=== PATIENT | male | born 1955 | race Caucasian/White ===

== ENCOUNTER → 2017-10-25 10:52 | Outpatient (CLI) | payer MEDICARE, BC, SELFPAY ==
--- NOTE | 2017-10-25 10:57 | CA_ITS ---
PROCEDURE: 2-D M-mode and color Doppler study INDICATIONS FOR THE TEST: Chest pain COPD Heart Murmur Tobacco Smoking Palpitations Fatigue Syncope Edema HypertensionXXDiabetes Mellitus Rheumatic Fever SOBXDOE ObesityXHyperlipidemiaX Family History HD Additional History CM, PATIENT INFORMATION HEIGHT: 72 WEIGHT:234 GENDER: Male B/P:118/68 2-D/M-MODE INTERPRETATION: 2-D MEASUREMENTS OBSERVED VALUES IN CMS Right Ventricular Dimension (RVDd) 1.7 Interventricular Septum (Thickness)(IVsd) 1.1 Left Ventricular Internal Dimensions(LVIDd) 5.2 Left Ventricular Posterior Wall (Thickness)(LVPWd) 1.0 Aortic Root 3.3 Aortic Cusp Separation 2.2 Left Atrial Dimensions (LAD) 3.1 2D 1. Left atrium is mildly enlarged, left ventricle is qualitatively mildly dilated, there is mild concentric left ventricular hypertrophy, there is severely reduced left ventricular systolic function, visually estimated ejection fraction approximately 30%, there is marked hypokinesis involving the anterior, anteroapical and intraventricular septum. 2. The right atrium and right ventricle are normal size and contractility. 3. The aortic valve is minimally thickened and fibrosed. 4. The mitral and tricuspid valve leaflets are minimally thickened. 5. The pulmonic valve is poorly visualized. 6. No significant pericardial effusion noted. DOPPLER INTERROGATION: Doppler interrogation of the aortic, mitral and tricuspid valve reveals presence of mild mitral and tricuspid regurgitation, tricuspid regurgitant jet velocity is insufficient for calculation of the right ventricular systolic pressure, grade 1 diastolic dysfunction seen with tissue Doppler evidence of raised left atrial pressure. CONCLUSION: 1. Mildly enlarged left atrium, mildly dilated left ventricle, mild concentric left ventricular hypertrophy, severely reduced left ventricular systolic function, visually estimated ejection fraction approximately 30% with segmental wall motion abnormalities described above. Grade 1 diastolic dysfunction seen with tissue Doppler evidence of raised left atrial pressure. 2. Mild mitral and tricuspid regurgitation 3. No significant pericardial effusion noted.
== END ==
PROVIDERS: PCP Emergency Medicine; Visit Provider Internal Medicine
DX: I42.1 Obstructive hypertrophic cardiomyopathy (principal); R07.9 Chest pain, unspecified; R06.00 Dyspnea, unspecified; I25.10 Atherosclerotic heart disease of native coronary artery without angina pectoris; I10 Essential (primary) hypertension; E78.5 Hyperlipidemia, unspecified
CPT/HCPCS: 93306

== ENCOUNTER 2017-11-09 07:42 | Day surgery (SDC) | payer MEDICARE, BC, SELFPAY ==
[2017-11-06 15:52] VITALS: BMI 31.6
[2017-11-09] VITALS (16 sets, daily range): BP systolic 114–142; BP diastolic 62–90; PULSE 76–88; RESP 12–18; TEMP 36.4–36.8; O2SAT 94–97
[2017-11-09 08:49] LABS: Basophils # 0.1 K/mm3 (0-0.2); Basophils % 0.6 % (0.1-2.0); Eosinophils # 0.2 K/mm3 (0.0-0.4); Eosinophils % 2.1 % (0.1-12.0); Hematocrit 40.6 % (42.0-52.0); Hemoglobin 14.1 g/dL (14.1-18.0); Lymphocytes # 1.4 K/mm3 (0.7-4.5); Lymphocytes % 16.3 K/mm3 (10-50); Mean Corpuscular HGB Conc 34.8 g/dL (31.8-35.4); Mean Corpuscular Hemoglobin 29.1 pg (27.0-31.2); Mean Corpuscular Volume 83.8 fl (80-94); Mean Platelet Volume 7.7 fl (7.4-10.4); Monocytes # 0.6 K/mm3 (0.1-1.0); Monocytes % 6.5 % (1.7-9.3); Neutrophils # 6.4 K/mm3 (1.8-7.8); Neutrophils % 74.6 % (37.0-80.0); Platelet Count 224 K/mm3 (142-424); Red Blood Count 4.85 M/mm3 (4.60-6.20); Red Cell Distribution Width 13.1 % (11.5-17.5); White Blood Count 8.6 K/mm3 (4.8-10.8)
[2017-11-09 08:53] LABS: Anion Gap 12.4 mEq/L (5-15); Blood Urea Nitrogen 18 mg/dL (7-18); Carbon Dioxide 28 mmol/L (21.0-32.0); Chloride 99 mmol/L (98-107); Creatinine Clearance Estimated 80 mL/min (0-300); Estimated Glomerular Filt Rate 51 ml/min (>60); GFR (African American) 62 ML/MIN (>60); Glucose 299 mg/dL (74-106); Potassium 4.4 mmoL/L (3.5-5.1); Sodium 135 mmol/L (136-145)
--- NOTE | 2017-11-09 09:23 | HMH.ANESCL ---
[facility] Anesthesia Checklist - Patient Identification Patient Identification: Arm Band, Verbal (Name & ) - Structural Data Admitted From: Home Planned Operative Procedure/s: aicd Consent for Planned Operative Procedure(s) Verified: Yes Verified Documents: Surgical Consent - NPO Status Verified Time NPO: 00:00 - Chart Verification Results Verified: CBC, BMP - Additional verifications Patient : No Anesthesia Reactions: No Hx Blood Transfusions: No Blood Transfusion Reaction: No Cephalosporin Allergy: No Previous Colonoscopy: No - Cardiovascular Assessment Heart Sounds: S1 & S2 Pulse Strength: Baseline Pulse Rhythm: Regular Peripheral Edema: No - Airway Assessment C-Spine Mobility Assessed: Yes TMJ Mobility Assessed: Yes Dentition: Edentulous - Neurological Assessment Level of Consciousness: Awake, Alert, Appropriate Hx Seizures: No Numbness or tingling in extremities: No - Anesthesia Plan Anesthesia Risk discussed: Yes ASA Class: IV Anesthesia Type: General [facility] Anesthesia HX I have reviewed the patient's past medical history: Yes Medical History: Reports:: BPH, Cardiomyopathy, Chronic Obstructive Pulmonary Disease (COPD), Coronary Artery Disease, Diabetes Mellitus Type 2, Gastroesophageal Reflux Disease(GERD), Hypertension Denies:: Cancer, Diabetes Mellitus Type 1, Internal Pacemaker, MRSA, Seizures Other Medical History: Denies: Blood Transfusion Reaction Other Surgeries: Yes: Other. No: Pacemaker Amputation: No Fractures: No *Family Hx:: Asthma, Cancer, Coronary Artery Disease, Diabetes, Hyperlipidemia, Hypertension, Stroke
--- NOTE | 2017-11-09 11:46 | HMH.ANESI ---
[facility] Anesthesia Record Part I Intake, IV Amount: 1,000 Estimated blood loss (mL): 50 Urine output (mL): 0 Blood Pressure: 137/90 SaO2: 95 Pulse Rate: 80 Respiratory Rate: 12 Temperature: 98.1 F Patient is:: Drowsy, Stable Stable to PACU at:: 11:45
--- NOTE | 2017-11-09 11:49 | HMH.ANESII ---
[facility] Anesthesia Record Part II Discharge Time: 12:15 Destination: [facility] PACU nurse assessment reviewed?: Yes Patient Condition:: Good Anesthesia Complications:: None
--- NOTE | 2017-11-09 11:49 | P.PN_ITS ---
[facility] Anesthesia Record Part II Discharge Time: 12:15 Destination: [facility] PACU nurse assessment reviewed?: Yes Patient Condition:: Good Anesthesia Complications:: None
--- NOTE | 2017-11-09 11:49 | P.PN_ITS ---
[facility] Anesthesia Record Part I Intake, IV Amount: 1,000 Estimated blood loss (mL): 50 Urine output (mL): 0 Blood Pressure: 137/90 SaO2: 95 Pulse Rate: 80 Respiratory Rate: 12 Temperature: 98.1 F Patient is:: Drowsy, Stable Stable to PACU at:: 11:45
--- NOTE | 2017-11-09 12:11 | XR_ITS ---
XR chest portable HISTORY: ITS.REASON: verify placement of pacemaker ORDERING PHYSICIAN: Elliott Moore MD PATIENT AGE: 62 years COMPARISON: None available FINDINGS: Left subclavian pacemaker has been placed. There are 3 leads one in the region of the right atrium, one in the region of the right ventricle, and one likely in the region of the coronary sinus overlying the left no evidence of pneumothorax. Minimal atelectatic changes left lung base. IMPRESSION: Status post pacemaker placement without evidence of complication
--- NOTE | 2017-11-09 14:33 | SUR.PHASEI ---
11/09/17 1225 chest xray done in pacu to verify placement of pacemaker
--- NOTE | 2017-11-09 15:51 | PC.NURSE ---
1330- pt eating chicken salad sandwich , chips, pie, dt dew. tolerated well administered 1 percocet 5/235mg at 13:15 for pain 6/10 pt had sling on left arm after dressing. stated felt better with arm secured to body
[2017-11-23 14:55] LABS: POC Glucose,Bedside 303 mg/dL (70-110)
--- NOTE | 2017-11-30 11:53 | HMH.CRT-D ---
[facility] BIKE ASSEMBLER-D - BIKE ASSEMBLER-D Date of Procedure:: 11/09/17 Procedures:: 1. Pocket formation for biventricular pacemaker generator with cardiac resynchronization/defibrillator therapy. 2. Placement atrial sensing and pacing lead into the right atrial appendage. 3. Placement of right ventricular sensing pacing and shocking lead in the right ventricular apex. 4. Placement of left ventricular sensing pacing lead via the coronary sinus. 5. Permanent cardiac resynchronization therapy with AICD implantation/biventricular pacemaker. Indication for test:: Ischemic cardiomyopathy ejection fraction less than 35% Widened QRS greater than 120 ms Systolic congestive heart failure [place] Heart Association class III Informed consent:: Obtained prior to procedure. Complications:: None EBL:: Less than 10 ml. Technique:: . 1% Lidocaine with epinephrine used to anesthetize the left anterior aspect of the chest.Scalpel was used to make the initial cutaneous incision while electrocautery was used to dissect down into the fascia. The fascia was lifted off the pectoralis muscle and digitally manipulated creating a pocket for the pacemaker. The patient was then placed in Trendelenburg position and the subclavian vein was accessed via the Selinger technique on 3 separate occasions. 3 wires were left into the subclavian vein. The right ventricular pacing shocking coil sheath was placed into the subclavian vein and under fluoroscopic guidance the right ventricular sensing pacing shocking lead was placed into the right ventricular apex and secured into place with a distal screw. After achieving excellent numbers the lead was then secured into place using 3-0 silk. The lead was secured to the fascia also with a heavy silk. Prior to the right ventricular lead being secured into place, the sheath was pealed away from the subclavian vein. Under fluoroscopic guidance the coronary sinus was cannulated and confirmed with an injection of contrast. An .014 wire was then placed distally in the inferior posterior swgment of the left ventricle via the coronary sinus and the left ventricular lead was advanced. After achieving eexcellent thresholds and interrogation numbers the sheath was then peeled away and the lead was then secured into place using silk suture. Following this, the left ventricular coil was secured in place using heavy silk and also secured to the fascia. An additional 7 [place] sheath was then placed over the existing wire and an atrial sensing placing coil was placed in the right atrial appendage. After achieving excellent thresholds the sheath was peeled away and the lead was secured to the fascia using heavy silk. After achieving hemostasis, Ancef was used to flush the pocket and the 3 leads were attached to the BIKE ASSEMBLER-D generator. The generator was then secured into place via heavy silk suture. Monocryl was used to close the subcutaneous layers while brian were used to close the cutaneous layer. A pressure dressing was placed and the patient was transferred to the post-op holding area in stable condition. Impression:: 1. Successful pocket formation for biventricular pacemaker generator with cardiac resynchronization/defibrillator therapy. 2. Successful placement of right atrial sensing and pacing lead into the right atrial appendage. 3. Successful placement of a right ventricular sensing, pacing, and shocking lead in the right ventricular apex. 4. Successful placement of left ventricular sensing pacing lead via the coronary sinus. 5. Successful permanent cardiac resynchronization plus AICD generator device. Interrogation:: Generator model number [id number] serial number [id number] Atrial lead model number serial number [id number] model number [id number] Right Ventricular lead model number [id number] serial number [id number] Left Ventricular lead model number 1458QL/86 serial number [id number] RA: P wave 2.8 mV Threshold 1 V Impedance 430 omhs pulse width 0.5 ms RVA
--- NOTE | 2017-11-30 11:59 | P.PCN_ITS ---
[facility] SENIOR GOVERNMENT PROGRAM ANALYST-D - SENIOR GOVERNMENT PROGRAM ANALYST-D Date of Procedure:: 11/09/17 Procedures:: 1. Pocket formation for biventricular pacemaker generator with cardiac resynchronization/defibrillator therapy. 2. Placement atrial sensing and pacing lead into the right atrial appendage. 3. Placement of right ventricular sensing pacing and shocking lead in the right ventricular apex. 4. Placement of left ventricular sensing pacing lead via the coronary sinus. 5. Permanent cardiac resynchronization therapy with AICD implantation/ biventricular pacemaker. Indication for test:: Ischemic cardiomyopathy ejection fraction less than 35% Widened QRS greater than 120 ms Systolic congestive heart failure [place] Heart Association class III Informed consent:: Obtained prior to procedure. Complications:: None EBL:: Less than 10 ml. Technique:: . 1% Lidocaine with epinephrine used to anesthetize the left anterior aspect of the chest.Scalpel was used to make the initial cutaneous incision while electrocautery was used to dissect down into the fascia. The fascia was lifted off the pectoralis muscle and digitally manipulated creating a pocket for the pacemaker. The patient was then placed in Trendelenburg position and the subclavian vein was accessed via the Selinger technique on 3 separate occasions. 3 wires were left into the subclavian vein. The right ventricular pacing shocking coil sheath was placed into the subclavian vein and under fluoroscopic guidance the right ventricular sensing pacing shocking lead was placed into the right ventricular apex and secured into place with a distal screw. After achieving excellent numbers the lead was then secured into place using 3-0 silk. The lead was secured to the fascia also with a heavy silk. Prior to the right ventricular lead being secured into place, the sheath was pealed away from the subclavian vein. Under fluoroscopic guidance the coronary sinus was cannulated and confirmed with an injection of contrast. An .014 wire was then placed distally in the inferior posterior swgment of the left ventricle via the coronary sinus and the left ventricular lead was advanced. After achieving eexcellent thresholds and interrogation numbers the sheath was then peeled away and the lead was then secured into place using silk suture. Following this, the left ventricular coil was secured in place using heavy silk and also secured to the fascia. An additional 7 [place]zeri sheath was then placed over the existing wire and an atrial sensing placing coil was placed in the right atrial appendage. After achieving excellent thresholds the sheath was peeled away and the lead was secured to the fascia using heavy silk. After achieving hemostasis, Ancef was used to flush the pocket and the 3 leads were attached to the SENIOR GOVERNMENT PROGRAM ANALYST-D generator. The generator was then secured into place via heavy silk suture. Monocryl was used to close the subcutaneous layers while brian were used to close the cutaneous layer. A pressure dressing was placed and the patient was transferred to the post-op holding area in stable condition. Impression:: 1. Successful pocket formation for biventricular pacemaker generator with cardiac resynchronization/defibrillator therapy. 2. Successful placement of right atrial sensing and pacing lead into the right atrial appendage. 3. Successful placement of a right ventricular sensing, pacing, and shocking lead in the right ventricular apex. 4. Successful placement of left ventricular sensing pacing lead via the coronary sinus. 5. Successful permanent cardiac resynchronization plus AICD generator device. Interrogation:: Generator model number [id number] serial number [id number] Atrial lead model
== END 2017-11-09 14:36 | disposition home or self-care (01) ==
LOC: OR 07:43
PROVIDERS: PCP Emergency Medicine; Visit Provider Internal Medicine
DX: Z45.02 Encounter for adjustment and management of automatic implantable cardiac defibrillator (principal); I50.22 Chronic systolic (congestive) heart failure; I44.0 Atrioventricular block, first degree; I11.0 Hypertensive heart disease with heart failure; E11.9 Type 2 diabetes mellitus without complications; I44.7 Left bundle-branch block, unspecified
CPT/HCPCS: 33249; 71045; 80048; 82962; 85025; 96374; C1769; C1882; C1894; C1895; C1898; Q9967

== ENCOUNTER → 2017-12-08 09:40 | Outpatient (CLI) | payer MEDICARE, BC, SELFPAY ==
--- NOTE | 2017-12-08 10:21 | XR_ITS ---
XR chest 2V COMPARISON: Portable upright chest 11/09/2017 HISTORY: Cough TECHNIQUE: PA and lateral chest FINDINGS: The lung alcantara are well expanded and appear clear of infiltrate. The cardiac pacemaker and electrodes are again noted electrodes in good position. Cardiac size is normal, there is no pleural fluid. IMPRESSION: Nonacute chest findings
[2017-12-08 16:56] LABS: Hemoglobin A1C 9.5 % (0.0-7.0)
[2017-12-09 00:36] LABS: Anion Gap 16.2 mEq/L (5-15); Blood Urea Nitrogen 26 mg/dL (7-18); Carbon Dioxide 28 mmol/L (21.0-32.0); Chloride 93 mmol/L (98-107); Creatinine,Serum 1.57 mg/dL (0.70-1.30); Estimated Glomerular Filt Rate 45 ml/min (>60); GFR (African American) 54 ML/MIN (>60); Potassium 5.2 mmoL/L (3.5-5.1); Sodium 132 mmol/L (136-145)
[2017-12-09 00:40] LABS: Glucose 384 mg/dL (74-106)
== END ==
PROVIDERS: PCP Emergency Medicine; Visit Provider Emergency Medicine
DX: E11.9 Type 2 diabetes mellitus without complications (principal); R05 Cough
CPT/HCPCS: 71046; 80048; 83036

== ENCOUNTER → 2018-01-03 10:37 | Outpatient (CLI) | payer MEDICARE, BC, SELFPAY ==
--- NOTE | 2018-01-03 10:40 | CT_ITS ---
CT chest wo con HISTORY: ITS.REASON: persistent cough ORDERING PHYSICIAN: Elliott Moore MD PATIENT AGE: 62 years Technique: Axial images obtained. Sagittal and coronal reformatted images are also generated and reviewed. All CT scans at the facility use one or more dose reduction, viz: automated exposure control; ma/kV adjustment per patient size (including targeted exams where dose is matched to indication; i.e. head); or iterative reconstruction technique. CONTRAST: None COMPARISON is made to chest x-ray of 12/08/2017 FINDINGS: Artifact is present from pacemaker generator in the left upper chest wall. No evidence of aortic aneurysm or mediastinal or hilar mass. There is coronary artery calcification. Normal heart size without evidence of pericardial effusion. There are centrilobular emphysematous changes with scattered areas of fibrosis. The right apex there is a 6 mm nodular opacity in the 4 mm nodule right upper lobe laterally. This may be due to areas of parenchymal fibrosis/scarring. Minimal fibrotic changes are present in the left upper lobe centrally. There is mild scarring in the right lung base. No effusions or infiltrates are evident. No central obstructing lesion. Upper abdominal images demonstrates a 5 mm isodensity left hepatic lobe in the hepatic dome area nonspecific. IMPRESSION: 1. Centrilobular emphysema with scattered areas of parenchymal scarring. 2. 6 mm and 4 mm nodular opacities in the right upper lobe which may very well be related to areas of parenchymal fibrosis. Six-month follow-up recommended. 3. Coronary artery disease. 4. Indeterminate 5 mm isodense lesion left hepatic lobe posterolaterally to a small cyst
== END ==
PROVIDERS: PCP Emergency Medicine; Visit Provider Internal Medicine
DX: R05 Cough (principal); R06.09 Other forms of dyspnea; I25.10 Atherosclerotic heart disease of native coronary artery without angina pectoris; I11.9 Hypertensive heart disease without heart failure; E78.5 Hyperlipidemia, unspecified; I50.20 Unspecified systolic (congestive) heart failure; I42.8 Other cardiomyopathies; Z95.810 Presence of automatic (implantable) cardiac defibrillator
CPT/HCPCS: 71250

== ENCOUNTER → 2018-02-06 10:29 | Outpatient (REF) | payer MEDICARE, BC, SELFPAY ==
[2018-02-06 13:50] LABS: Blood Urea Nitrogen 20 mg/dL (7-18); Carbon Dioxide 25 mmol/L (21.0-32.0); Chloride 96 mmol/L (98-107); Creatinine,Serum 1.63 mg/dL (0.70-1.30); Estimated Glomerular Filt Rate 43 ml/min (>60); GFR (African American) 52 ML/MIN (>60); Glucose 371 mg/dL (74-106); Sodium 134 mmol/L (136-145)
[2018-02-06 14:04] LABS: Hemoglobin A1C 8.3 % (0.0-7.0)
== END ==
LOC: LAB 10:29
PROVIDERS: Visit Provider Emergency Medicine
DX: E11.9 Type 2 diabetes mellitus without complications (principal); E78.5 Hyperlipidemia, unspecified
CPT/HCPCS: 80048; 83036

== ENCOUNTER → 2018-02-13 09:23 | Outpatient (POV) | payer MEDICARE, BC, SELFPAY | PROVIDERS: PCP Emergency Medicine; Visit Provider Internal Medicine | DX: Z00.00 Encounter for general adult medical examination without abnormal findings (principal) ==

== ENCOUNTER → 2018-03-07 08:31 | Outpatient (REF) | payer MEDICARE, BC, SELFPAY ==
[2018-03-08 10:31] LABS: Alanine Aminotransferase 30 U/L (12-78); Albumin Level 4.2 gm/dL (3.4-5.0); Albumin/Globulin Ratio 1.4 (1.1-1.8); Alkaline Phosphatase 99 U/L (46-116); Anion Gap 17.4 mEq/L (5-15); Aspartate Amino Transferase 17 U/L (15-37); Bilirubin,Total 0.4 mg/dL (0.2-1.0); Blood Urea Nitrogen 26 mg/dL (7-18); Calcium 9.7 mg/dL (8.5-10.1); Carbon Dioxide 26 mmol/L (21.0-32.0); Chloride 98 mmol/L (98-107); Creatinine,Serum 1.68 mg/dL (0.70-1.30); Estimated Glomerular Filt Rate 41 ml/min (>60); GFR (African American) 50 ML/MIN (>60); Glucose 359 mg/dL (74-106); Potassium 5.4 mmoL/L (3.5-5.1); Sodium 136 mmol/L (136-145); Total Protein,Serum 7.2 gm/dL (6.4-8.2)
[2018-03-09 09:03] LABS: Basophils % 0.5 % (0.1-2.0); Eosinophils # 0.2 K/mm3 (0.0-0.4); Eosinophils % 1.7 % (0.1-12.0); Hematocrit 45.6 % (42.0-52.0); Hemoglobin 13.9 g/dL (14.1-18.0); Lymphocytes # 1.2 K/mm3 (0.7-4.5); Lymphocytes % 13.7 K/mm3 (10-50); Mean Corpuscular HGB Conc 30.6 g/dL (31.8-35.4); Mean Corpuscular Hemoglobin 28.8 pg (27.0-31.2); Mean Corpuscular Volume 94.1 fl (80-94); Mean Platelet Volume 9.7 fl (7.4-10.4); Monocytes # 0.5 K/mm3 (0.1-1.0); Monocytes % 5.5 % (1.7-9.3); Neutrophils % 78.6 % (37.0-80.0); Platelet Count 266 K/mm3 (142-424); Red Blood Count 4.84 M/mm3 (4.60-6.20); Red Cell Distribution Width 13.1 % (11.5-17.5)
[2018-03-09 11:04] LABS: Chol/HDL Ratio 6.3 (1-3.5); Cholesterol 207 mg/dL (140-200); Free T4 (Free Thyroxine) 1.03 ng/dl (0.76-1.46); HDL Cholesterol 33 mg/dL (27-67); Thyroid Stimulating Hormone 2.28 uIU/ml (0.358-3.740)
[2018-03-09 11:18] LABS: Triglycerides 655 mg/dL (30-200)
== END ==
LOC: LAB 08:31
PROVIDERS: Visit Provider Emergency Medicine
DX: E11.9 Type 2 diabetes mellitus without complications (principal)
CPT/HCPCS: 80053; 80061; 84439; 84443; 85025

== ENCOUNTER → 2018-03-08 08:30 | Outpatient (CLI) | payer MEDICARE, BC, SELFPAY | PROVIDERS: Visit Provider Emergency Medicine | DX: E11.9 Type 2 diabetes mellitus without complications (principal) ==

== ENCOUNTER → 2018-03-12 12:42 | Outpatient (CLI) | payer MEDICARE, BC, SELFPAY ==
[2018-03-12 13:50] VITALS: PULSE 82; PULSE 90
[2018-03-12 14:35] VITALS: BP 118/70; BP 135/78; PULSE 82; PULSE 90; RESP 16; RESP 20; O2SAT 100; O2SAT 95
== END ==
PROVIDERS: PCP Emergency Medicine; Visit Provider Internal Medicine
DX: R06.09 Other forms of dyspnea (principal); J43.2 Centrilobular emphysema
CPT/HCPCS: 94060; 94618; 94640; 94727; 94729

== ENCOUNTER → 2018-03-27 10:00 | Outpatient (POV) | payer MEDICARE, BC, SELFPAY | PROVIDERS: PCP Emergency Medicine; Visit Provider Internal Medicine | DX: Z00.00 Encounter for general adult medical examination without abnormal findings (principal) ==

== ENCOUNTER → 2018-04-18 11:52 | Outpatient (CLI) | payer MEDICARE, BC, SELFPAY ==
--- NOTE | 2018-04-18 11:54 | NM_ITS ---
History and Indications: Coronary artery disease, hypertension, diabetes, hyperlipidemia, family history, chest pain, shortness of breath and fatigue pacemaker Procedure: Patient received a 0.4 mg of Lexiscan, resting heart rate was 77 bpm, resting blood pressure 127/72, with Lexiscan maximum heart rate achieved was 87 bpm which is less than 85% of the maximum predicted heart rate and a blood pressure was 104/56. With Lexiscan patient complained of mild chest discomfort and shortness of breath Electrocardiogram: Resting echocardiogram showed electronically paced rhythm, with Lexiscan less than 1.[address] segment depression noted from the baseline EKG. The EKG portion of the Lexiscan Myoview is nondiagnostic. Cardiac stress and resting SPECT images: Cardiac stress and rest SPECT images were obtained using technetium 99 Myoview 32.3 mCi at stress than 10.2 mCi at rest. Gated SPECT further analysis of segmental wall motion and calculation of the ejection fraction also done. Cardiac stress and rest SPECT images show a fixed defect in the inferior wall with normal contractility in the gated SPECT is likely secondary to soft tissue attenuation, however there is decreased tracer activity in the anteroapical wall which improves on the resting images suggestive of reversible ischemia in that area. Computer derived ejection fraction is 49% with anteroapical wall moderate hypokinesis. Conclusion: 1. The EKG portion of the Lexiscan Myoview is nondiagnostic. 2. Scintigraphic evidence of mild reversible ischemia involving the anteroapical wall, computer derived ejection fraction 49% with segmental wall motion abnormality described above, right ventricle is normal size and contractility. 3. Abnormal Lexiscan Myoview study.
--- NOTE | 2018-04-18 12:30 | HMH.ITSHM ---
TICAGRELOR TESTOSTERONE TAMSULOSIN SPIRONOLACTONE ASA SITAGLIPTIN PRAVASTATIN OMEPRAZOLE METOPROLOL METFORMIN LISINOPRIL GLIMEPIRIDE GABAPENTIN FUROSEMIDE CYCLOBENZAPRINE
[2018-04-18 14:34] LABS: Microscopic, Urine URINE MICROSCOPIC (MICROSCOPIC)
[2018-04-18 14:57] LABS: Basophils # 0.1 K/mm3 (0-0.2); Basophils % 0.6 % (0.1-2.0); Eosinophils # 0.2 K/mm3 (0.0-0.4); Eosinophils % 1.9 % (0.1-12.0); Hematocrit 39.8 % (42.0-52.0); Hemoglobin 13.6 g/dL (14.1-18.0); Lymphocytes % 13.1 K/mm3 (10-50); Mean Corpuscular HGB Conc 34.3 g/dL (31.8-35.4); Mean Corpuscular Hemoglobin 29.3 pg (27.0-31.2); Mean Corpuscular Volume 85.3 fl (80-94); Mean Platelet Volume 7.8 fl (7.4-10.4); Monocytes # 0.4 K/mm3 (0.1-1.0); Monocytes % 5.7 % (1.7-9.3); Neutrophils # 6.1 K/mm3 (1.8-7.8); Neutrophils % 78.7 % (37.0-80.0); Platelet Count 264 K/mm3 (142-424); Red Blood Count 4.66 M/mm3 (4.60-6.20); Red Cell Distribution Width 13.1 % (11.5-17.5); White Blood Count 7.8 K/mm3 (4.8-10.8)
[2018-04-18 15:08] LABS: Appearance,Urine CLEAR (Clear); Bilirubin,Urine Negative (Negative); Blood, Urine Negative (Negative); Color,Urine YELLOW (Yellow); Glucose,Urine (UA) 3+ (Negative); Ketones,Urine Negative (Negative); Leukocyte Esterase,Urine Negative (Negative); Nitrate,Urine Negative (Negative); Protein,Urine Negative (Negative); Specific Gravity, Urine <= 1.005 (1.005-1.030); Urobilinogen,Urine 0.2 EU/dl (0.2)
[2018-04-18 15:17] LABS: Bacteria,Urine Trace /lpf
[2018-04-18 15:26] LABS: Creatinine,Urine Random 50 mg/dL (20-320); Total Protein,Urine Random < 6.0 mg/dL (0.0-11.9)
[2018-04-18 15:52] LABS: Albumin Level 4.1 gm/dL (3.4-5.0); Anion Gap 14.1 mEq/L (5-15); Blood Urea Nitrogen 30 mg/dL (7-18); Calcium 9.2 mg/dL (8.5-10.1); Carbon Dioxide 27 mmol/L (21.0-32.0); Chloride 98 mmol/L (98-107); Creatinine,Serum 1.79 mg/dL (0.70-1.30); Estimated Glomerular Filt Rate 38 ml/min (>60); GFR (African American) 46 ML/MIN (>60); Glucose 337 mg/dL (74-106); Phosphorous 3.8 mg/dL (2.4-4.9); Potassium 5.1 mmoL/L (3.5-5.1); Sodium 134 mmol/L (136-145)
[2018-04-20 14:53] LABS: Parathyroid Hormone Intact 42 pg/mL (15-65); Vitamin D 25 Hydroxy 30.4 ng/mL (30.0-100.0)
== END ==
PROVIDERS: Internal Medicine Nephrology; PCP Emergency Medicine; Visit Provider Internal Medicine
DX: R06.09 Other forms of dyspnea (principal); N18.3 Chronic kidney disease, stage 3 (moderate)
CPT/HCPCS: 36415; 78452; 80069; 81001; 82570; 82652; 83970; 84155; 85025; 93017; A9502; J2785

== ENCOUNTER → 2018-04-26 12:51 | Outpatient (POV) | payer MEDICARE, BC, SELFPAY | PROVIDERS: PCP Emergency Medicine; Visit Provider Internal Medicine Nephrology | DX: Z00.00 Encounter for general adult medical examination without abnormal findings (principal) ==

== ENCOUNTER → 2018-05-01 11:48 | Outpatient (CLI) | payer MEDICARE, BC, SELFPAY ==
[2018-05-01 13:49] LABS: Anion Gap 17.5 mEq/L (5-15); Blood Urea Nitrogen 24 mg/dL (7-18); Calcium 9.3 mg/dL (8.5-10.1); Carbon Dioxide 23 mmol/L (21.0-32.0); Chloride 97 mmol/L (98-107); Creatinine,Serum 1.82 mg/dL (0.70-1.30); Estimated Glomerular Filt Rate 38 ml/min (>60); GFR (African American) 45 ML/MIN (>60); Potassium 5.5 mmoL/L (3.5-5.1); Sodium 132 mmol/L (136-145)
[2018-05-01 13:52] LABS: Glucose 542 mg/dL (74-106)
== END ==
PROVIDERS: Visit Provider Internal Medicine
DX: E87.5 Hyperkalemia (principal)
CPT/HCPCS: 36415; 80048

== ENCOUNTER → 2018-05-11 12:39 | Outpatient (CLI) | payer MEDICARE, BC, SELFPAY ==
[2018-05-11 16:04] LABS: Anion Gap 16.7 mEq/L (5-15); Blood Urea Nitrogen 34 mg/dL (7-18); Calcium 9.4 mg/dL (8.5-10.1); Carbon Dioxide 26 mmol/L (21.0-32.0); Chloride 95 mmol/L (98-107); Creatinine,Serum 1.76 mg/dL (0.70-1.30); Estimated Glomerular Filt Rate 39 ml/min (>60); GFR (African American) 47 ML/MIN (>60); Potassium 5.7 mmoL/L (3.5-5.1); Sodium 132 mmol/L (136-145)
[2018-05-11 17:00] LABS: Glucose 444 mg/dL (74-106)
== END ==
PROVIDERS: Physician Assistant; Visit Provider Internal Medicine Cardiovascular Disease
DX: E87.5 Hyperkalemia (principal)
CPT/HCPCS: 36415; 80048

== ENCOUNTER → 2018-05-22 15:35 | Outpatient (CLI) | payer MEDICARE, BC, SELFPAY ==
--- NOTE | 2018-05-22 15:41 | XR_ITS ---
XR foot LT min 3V HISTORY: Posttraumatic pain ITS.REASON: Injury ORDERING PHYSICIAN: DANTE Matthews PATIENT AGE: 63 years COMPARISON: None FINDINGS: There is some lobulation along the anterior distal aspect of the navicular. This could be developmental. A nondisplaced fracture is an additional consideration. Please correlate as to patient's area of pain and tenderness. Small area of cortical thickening is present involving the proximal aspect of the fifth metatarsal laterally. No other significant anomalies IMPRESSION: 1. No definite acute finding. 2. Mild lobulation along the anterior distal aspect of the navicular which may be due to old injury. Please correlate clinically. If there is focal pain in this area then, CT may be of further value
--- NOTE | 2018-05-22 15:41 | XR_ITS ---
XR ankle RT min 3V HISTORY: Posttraumatic pain ITS.REASON: right ankle injury ORDERING PHYSICIAN: DANTE Matthews PATIENT AGE: 63 years Comparison: None FINDINGS: No fracture or dislocation. No lytic or blastic change. There is normal mineralization.. The joint spaces are well-preserved. No significant degenerative/arthritic changes. No erosive changes evident. IMPRESSION: Negative ankle, no acute finding
== END ==
PROVIDERS: PCP Emergency Medicine; Visit Provider Physician Assistant
DX: S99.921A Unspecified injury of right foot, initial encounter (principal); M79.671 Pain in right foot
CPT/HCPCS: 73610; 73630

== ENCOUNTER → 2018-05-24 16:17 | Outpatient (REF) | payer MEDICARE, BC, SELFPAY | LOC: LAB 16:17 | PROVIDERS: Visit Provider Physician Assistant | DX: L03.115 Cellulitis of right lower limb (principal) | CPT/HCPCS: 87070; 87077; 87186; 87205 ==

== ENCOUNTER → 2018-06-13 13:36 | Outpatient (REF) | payer MEDICARE, BC, SELFPAY ==
[2018-06-13 18:04] LABS: Basophils # 0.1 K/mm3 (0-0.2); Basophils % 0.9 % (0.1-2.0); Eosinophils # 0.1 K/mm3 (0.0-0.4); Eosinophils % 1.9 % (0.1-12.0); Hematocrit 43.9 % (42.0-52.0); Hemoglobin 14.6 g/dL (14.1-18.0); Lymphocytes # 0.9 K/mm3 (0.7-4.5); Lymphocytes % 11.8 K/mm3 (10-50); Mean Corpuscular HGB Conc 33.2 g/dL (31.8-35.4); Mean Corpuscular Hemoglobin 28.9 pg (27.0-31.2); Mean Corpuscular Volume 86.9 fl (80-94); Mean Platelet Volume 7.9 fl (7.4-10.4); Monocytes # 0.5 K/mm3 (0.1-1.0); Monocytes % 6.3 % (1.7-9.3); Neutrophils # 5.9 K/mm3 (1.8-7.8); Neutrophils % 79.1 % (37.0-80.0); Platelet Count 275 K/mm3 (142-424); Red Blood Count 5.05 M/mm3 (4.60-6.20); Red Cell Distribution Width 13.7 % (11.5-17.5); White Blood Count 7.5 K/mm3 (4.8-10.8)
[2018-06-13 18:25] LABS: Alanine Aminotransferase 26 U/L (12-78); Albumin Level 4.3 gm/dL (3.4-5.0); Albumin/Globulin Ratio 1.3 (1.1-1.8); Alkaline Phosphatase 120 U/L (46-116); Anion Gap 14.8 mEq/L (5-15); Bilirubin,Total 0.5 mg/dL (0.2-1.0); Blood Urea Nitrogen 21 mg/dL (7-18); Calcium 9.3 mg/dL (8.5-10.1); Carbon Dioxide 28 mmol/L (21.0-32.0); Chloride 99 mmol/L (98-107); Chol/HDL Ratio 5.7 (1-3.5); Cholesterol 183 mg/dL (140-200); Creatinine,Serum 1.52 mg/dL (0.70-1.30); Estimated Glomerular Filt Rate 46 ml/min (>60); GFR (African American) 56 ML/MIN (>60); Globulin 3.3 gm/dl (1.3-3.2); Glucose 353 mg/dL (74-106); HDL Cholesterol 32 mg/dL (27-67); Sodium 137 mmol/L (136-145); T4 (Thyroxine) 7.9 ug/dl (4.7-13.3); Thyroid Stimulating Hormone 2.07 uIU/ml (0.358-3.740); Total Protein,Serum 7.6 gm/dL (6.4-8.2)
[2018-06-13 18:29] LABS: Potassium 4.8 mmoL/L (3.5-5.1); Triglycerides 490 mg/dL (30-200)
[2018-06-13 18:30] LABS: Aspartate Amino Transferase 13 U/L (15-37)
[2018-06-15 19:11] LABS: Microalbumin, Urine 4.3 ug/mL (Not Estab.); PSA, Free 0.27 ng/mL; Prostate Specific Ag 1.5 ng/mL (0.0-4.0)
[2018-06-17 18:32] LABS: Testosterone, Total, LC/MS 887.7 ng/dL (264.0-916.0)
== END ==
LOC: LAB 13:36
PROVIDERS: Visit Provider Physician Assistant
DX: E11.9 Type 2 diabetes mellitus without complications (principal); E34.9 Endocrine disorder, unspecified; N42.9 Disorder of prostate, unspecified
CPT/HCPCS: 80053; 80061; 82043; 83036; 84153; 84154; 84403; 84436; 84443; 85025

== ENCOUNTER → 2018-07-23 14:43 | Outpatient (CLI) | payer MEDICARE, BC, SELFPAY ==
[2018-07-23 14:48] LABS: Microscopic, Urine URINE MICROSCOPIC (MICROSCOPIC)
[2018-07-23 15:06] LABS: Basophils # 0.1 K/mm3 (0-0.2); Basophils % 0.7 % (0.1-2.0); Eosinophils # 0.1 K/mm3 (0.0-0.4); Eosinophils % 1.1 % (0.1-12.0); Hematocrit 42.1 % (42.0-52.0); Hemoglobin 14.5 g/dL (14.1-18.0); Lymphocytes # 1.2 K/mm3 (0.7-4.5); Lymphocytes % 13.9 K/mm3 (10-50); Mean Corpuscular HGB Conc 34.3 g/dL (31.8-35.4); Mean Corpuscular Hemoglobin 28.1 pg (27.0-31.2); Mean Corpuscular Volume 81.9 fl (80-94); Mean Platelet Volume 7.7 fl (7.4-10.4); Monocytes # 0.5 K/mm3 (0.1-1.0); Monocytes % 5.6 % (1.7-9.3); Neutrophils # 6.9 K/mm3 (1.8-7.8); Neutrophils % 78.7 % (37.0-80.0); Platelet Count 244 K/mm3 (142-424); Red Blood Count 5.14 M/mm3 (4.60-6.20); Red Cell Distribution Width 13.2 % (11.5-17.5); White Blood Count 8.8 K/mm3 (4.8-10.8)
--- NOTE | 2018-07-23 15:09 | US_ITS ---
US kidney retroperitoneal comp Ordering Physician: Gregorio Hanley Patient Age: 63 years: Male HISTORY: ITS.REASON: CKD 3 TECHNIQUE: Bilateral renal ultrasound COMPARISON :CT abdomen pelvis 03/16/2013 FINDINGS Kidneys appear within normal limits bilaterally with no hydronephrosis nor mass. Cortex fairly well-maintained with only borderline thinning on right kidney compared to left. Upper normal echogenicity of cortex. Grossly Adequate color Doppler flow survey noted bilaterally Right kidney. Normal size. 10.5 cm in length and 6.1 cm thousand 8.3 cm Left kidney. Normal size measuring 12.2 cm in length 6.15 cm x 5.8 cm. IMPRESSION: The kidneys appear within normal limits. Normal size No hydronephrosis or mass. Cortex adequately maintained bilateral.
[2018-07-23 15:28] LABS: Appearance,Urine CLEAR (Clear); Bilirubin,Urine Negative (Negative); Blood, Urine Negative (Negative); Color,Urine YELLOW (Yellow); Glucose,Urine (UA) 1+ (Negative); Ketones,Urine Negative (Negative); Leukocyte Esterase,Urine Negative (Negative); Nitrate,Urine Negative (Negative); PH,Urine 5.5 (5.0-8.5); Protein,Urine Negative (Negative); Specific Gravity, Urine <= 1.005 (1.005-1.030); Urobilinogen,Urine 0.2 EU/dl (0.2)
[2018-07-23 17:38] LABS: Creatinine,Urine Random 30 mg/dL (20-320); Total Protein,Urine Random 7.6 mg/dL (0.0-11.9)
[2018-07-23 19:36] LABS: Albumin Level 4.2 gm/dL (3.4-5.0); Anion Gap 13.3 mEq/L (5-15); Blood Urea Nitrogen 23 mg/dL (7-18); Calcium 9.3 mg/dL (8.5-10.1); Carbon Dioxide 29 mmol/L (21.0-32.0); Chloride 95 mmol/L (98-107); Creatinine,Serum 1.31 mg/dL (0.70-1.30); Estimated Glomerular Filt Rate 55 ml/min (>60); GFR (African American) 66 ML/MIN (>60); Glucose 214 mg/dL (74-106); Phosphorous 3.4 mg/dL (2.4-4.9); Potassium 4.3 mmoL/L (3.5-5.1); Sodium 133 mmol/L (136-145)
[2018-07-25 14:42] LABS: Parathyroid Hormone Intact 48 pg/mL (15-65); Vitamin D 25 Hydroxy 38.7 ng/mL (30.0-100.0)
[2018-07-25 18:34] LABS: Calcium, Ionized 5.2 mg/dL (4.5-5.6)
== END ==
PROVIDERS: PCP Physician Assistant; Visit Provider Internal Medicine Nephrology
DX: N18.3 Chronic kidney disease, stage 3 (moderate) (principal)
CPT/HCPCS: 36415; 76770; 80069; 81001; 82330; 82570; 82652; 83970; 84155; 85025

== ENCOUNTER → 2018-07-26 13:04 | Outpatient (POV) | payer MEDICARE, BC, SELFPAY | PROVIDERS: Visit Provider Internal Medicine Nephrology | DX: Z00.00 Encounter for general adult medical examination without abnormal findings (principal) ==

== ENCOUNTER → 2018-09-12 18:56 | Outpatient (CLI) | payer MEDICARE, BC, SELFPAY ==
[2018-09-12 20:50] LABS: Hemoglobin A1C 9.9 % (0.0-7.0)
[2018-09-12 21:11] LABS: Basophils # 0.1 K/mm3 (0-0.2); Basophils % 0.8 % (0.1-2.0); Eosinophils # 0.1 K/mm3 (0.0-0.4); Eosinophils % 1.6 % (0.1-12.0); Hemoglobin 14.5 g/dL (14.1-18.0); Lymphocytes # 1.2 K/mm3 (0.7-4.5); Lymphocytes % 14.5 % (10-50); Mean Corpuscular HGB Conc 33.1 g/dL (31.8-35.4); Mean Corpuscular Volume 81.5 fl (80-94); Monocytes # 0.5 K/mm3 (0.1-1.0); Monocytes % 6.4 % (1.7-9.3); Neutrophils # 6.3 K/mm3 (1.8-7.8); Neutrophils % 76.6 % (37.0-80.0); Platelet Count 245 K/mm3 (142-424); Red Blood Count 5.39 M/mm3 (4.60-6.20); Red Cell Distribution Width 13.6 % (11.5-17.5); White Blood Count 8.2 K/mm3 (4.8-10.8)
[2018-09-12 23:25] LABS: Alanine Aminotransferase 34 U/L (12-78); Albumin Level 4.2 gm/dL (3.4-5.0); Albumin/Globulin Ratio 1.3 (1.1-1.8); Alkaline Phosphatase 95 U/L (46-116); Anion Gap 15.3 mEq/L (5-15); Aspartate Amino Transferase 17 U/L (15-37); Bilirubin,Total 0.5 mg/dL (0.2-1.0); Blood Urea Nitrogen 17 mg/dL (7-18); Calcium 9.4 mg/dL (8.5-10.1); Carbon Dioxide 27 mmol/L (21.0-32.0); Chloride 97 mmol/L (98-107); Chol/HDL Ratio 5.4 (1-3.5); Cholesterol 214 mg/dL (140-200); Creatinine,Serum 1.45 mg/dL (0.70-1.30); Estimated Glomerular Filt Rate 49 ml/min (>60); GFR (African American) 59 ML/MIN (>60); Globulin 3.2 gm/dl (1.3-3.2); Glucose 186 mg/dL (74-106); HDL Cholesterol 40 mg/dL (27-67); LDL Cholesterol 124 mg/dL (0-130); Potassium 4.3 mmoL/L (3.5-5.1); Sodium 135 mmol/L (136-145); T4 (Thyroxine) 8.7 ug/dl (4.7-13.3); Thyroid Stimulating Hormone 2.13 uIU/ml (0.358-3.740); Total Protein,Serum 7.4 gm/dL (6.4-8.2); Triglycerides 252 mg/dL (30-200); VLDL Cholesterol 50 mg/dL (0-40)
[2018-09-14 09:17] LABS: Microalbumin, Urine 10.5 ug/mL (Not Estab.)
[2018-09-14 16:15] LABS: Folate 14.2 ng/mL (>3.0); PSA, Free 0.25 ng/mL; Prostate Specific Ag 1.3 ng/mL (0.0-4.0); Vitamin B12 360 pg/mL (232-1245); Vitamin D 25 Hydroxy 33.2 ng/mL (30.0-100.0)
== END ==
PROVIDERS: Visit Provider Physician Assistant
DX: E11.9 Type 2 diabetes mellitus without complications (principal); I10 Essential (primary) hypertension; R97.20 Elevated prostate specific antigen [PSA]
CPT/HCPCS: 80053; 80061; 82043; 82570; 82607; 82652; 82746; 83036; 84153; 84154; 84436; 84443; 85025

== ENCOUNTER → 2018-10-02 12:55 | Outpatient (CLI) | payer MEDICARE, BC, SELFPAY | PROVIDERS: PCP Nurse Practitioner Family; Visit Provider Nurse Practitioner Family | DX: Z71.3 Dietary counseling and surveillance (principal) | CPT/HCPCS: 97802 ==

== ENCOUNTER → 2019-02-25 17:21 | Outpatient (CLI) | payer MEDICARE, BC, SELFPAY ==
[2019-02-25 17:25] LABS: Microscopic, Urine URINE MICROSCOPIC (MICROSCOPIC)
[2019-02-25 18:37] LABS: Basophils # 0.1 K/mm3 (0-0.2); Basophils % 0.6 % (0.1-2.0); Eosinophils # 0.1 K/mm3 (0.0-0.4); Hematocrit 41.9 % (42.0-52.0); Hemoglobin 14.2 g/dL (14.1-18.0); Lymphocytes # 1.3 K/mm3 (0.7-4.5); Lymphocytes % 14.6 % (10-50); Mean Corpuscular HGB Conc 33.8 g/dL (31.8-35.4); Mean Corpuscular Hemoglobin 26.8 pg (27.0-31.2); Mean Corpuscular Volume 79.3 fl (80-94); Mean Platelet Volume 7.4 fl (7.4-10.4); Monocytes # 0.5 K/mm3 (0.1-1.0); Monocytes % 5.4 % (1.7-9.3); Neutrophils # 6.8 K/mm3 (1.8-7.8); Neutrophils % 78.5 % (37.0-80.0); Platelet Count 249 K/mm3 (142-424); Red Blood Count 5.29 M/mm3 (4.60-6.20); Red Cell Distribution Width 13.7 % (11.5-17.5); White Blood Count 8.6 K/mm3 (4.8-10.8)
[2019-02-25 19:27] LABS: Appearance,Urine CLEAR (Clear); Bilirubin,Urine Negative (Negative); Blood, Urine Negative (Negative); Color,Urine YELLOW (Yellow); Glucose,Urine (UA) 3+ (Negative); Ketones,Urine Negative (Negative); Leukocyte Esterase,Urine Negative (Negative); Nitrate,Urine Negative (Negative); Protein,Urine Negative (Negative); Specific Gravity, Urine <= 1.005 (1.005-1.030); Urobilinogen,Urine 0.2 EU/dl (0.2)
[2019-02-25 19:30] LABS: Albumin Level 4.1 gm/dL (3.4-5.0); Anion Gap 16.6 mEq/L (5-15); Blood Urea Nitrogen 25 mg/dL (7-18); Calcium 9.3 mg/dL (8.5-10.1); Carbon Dioxide 26 mmol/L (21.0-32.0); Chloride 98 mmol/L (98-107); Creatinine,Serum 1.72 mg/dL (0.70-1.30); Estimated Glomerular Filt Rate 40 ml/min (>60); GFR (African American) 49 ML/MIN (>60); Glucose 109 mg/dL (74-106); Phosphorous 3.8 mg/dL (2.4-4.9); Potassium 4.6 mmoL/L (3.5-5.1); Sodium 136 mmol/L (136-145)
[2019-02-25 19:57] LABS: Bacteria,Urine Trace /lpf; Squamous Epithelial Cell,Urine Occasional #/hpf (0-5); WBC,Urine Occasional #/hpf (0-3)
[2019-02-25 20:39] LABS: Creatinine,Urine Random 47 mg/dL (20-320); Total Protein,Urine Random 6.1 mg/dL (0.0-11.9)
== END ==
PROVIDERS: Visit Provider Internal Medicine Nephrology
DX: N18.3 Chronic kidney disease, stage 3 (moderate) (principal)
CPT/HCPCS: 36415; 80069; 81001; 82570; 84155; 85025

== ENCOUNTER → 2019-03-04 13:24 | Outpatient (POV) | payer MEDICARE, BC, SELFPAY | PROVIDERS: Visit Provider Internal Medicine Nephrology | DX: Z00.00 Encounter for general adult medical examination without abnormal findings (principal) ==

== ENCOUNTER → 2019-03-04 13:34 | Outpatient (CLI) | payer MEDICARE, BC, SELFPAY ==
[2019-03-04 14:20] LABS: Chol/HDL Ratio 5.1 (1-3.5); Cholesterol 159 mg/dL (140-200); HDL Cholesterol 31 mg/dL (27-67); LDL Cholesterol 84 mg/dL (0-130); Triglycerides 220 mg/dL (30-200); VLDL Cholesterol 44 mg/dL (0-40)
[2019-03-04 14:45] LABS: Amphetamine/Metha Screen,Urine Negative ng/mL (<1000); Barbiturates Screen,Urine Negative ng/mL (<200); Benzodiazepines Screen,Urine Negative ng/mL (<200); Cannabinoid Screen,Urine Negative ng/mL (<50); Cocaine Screen,Urine Negative ng/mL (<300); Methadone Screen,Urine Negative ng/mL (<300); Opiate Screen,Urine Negative ng/mL (<300); Phencyclidine Screen,Urine Negative ng/mL (<25)
[2019-03-04 17:09] LABS: Hemoglobin A1C 7.4 % (0.0-7.0)
== END ==
PROVIDERS: Visit Provider Nurse Practitioner Family
DX: E11.9 Type 2 diabetes mellitus without complications (principal); I10 Essential (primary) hypertension; I44.0 Atrioventricular block, first degree; Z79.4 Long term (current) use of insulin
CPT/HCPCS: 80061; 80305; 83036

== ENCOUNTER → 2019-03-20 13:58 | Outpatient (POV) | payer MEDICARE, BC, SELFPAY | DX: Z00.00 Encounter for general adult medical examination without abnormal findings (principal) ==

== ENCOUNTER → 2019-08-29 13:49 | Outpatient (CLI) | payer MEDICARE, BC, SELFPAY ==
[2019-08-29 15:59] LABS: Anion Gap 16.1 mEq/L (5-15); Blood Urea Nitrogen 22 mg/dL (7-18); Calcium 8.8 mg/dL (8.5-10.1); Carbon Dioxide 27 mmol/L (21.0-32.0); Chloride 93 mmol/L (98-107); Creatinine,Serum 1.37 mg/dL (0.70-1.30); Estimated Glomerular Filt Rate 52 ml/min (>60); GFR (African American) 63 ML/MIN (>60); Potassium 5.1 mmoL/L (3.5-5.1); Sodium 131 mmol/L (136-145)
[2019-08-29 16:08] LABS: Glucose 479 mg/dL (74-106)
== END ==
PROVIDERS: Visit Provider Internal Medicine Cardiovascular Disease
DX: I11.9 Hypertensive heart disease without heart failure (principal); I25.10 Atherosclerotic heart disease of native coronary artery without angina pectoris; I42.9 Cardiomyopathy, unspecified; R06.09 Other forms of dyspnea
CPT/HCPCS: 36415; 80048; 83880

== ENCOUNTER → 2019-08-30 16:41 | Outpatient (CLI) | payer MEDICARE, BC, SELFPAY ==
[2019-08-30 16:56] LABS: Basophils # 0.1 K/mm3 (0-0.2); Basophils % 0.6 % (0.1-2.0); Eosinophils # 0.2 K/mm3 (0.0-0.4); Eosinophils % 1.5 % (0.1-12.0); Hematocrit 40.7 % (42.0-52.0); Hemoglobin 13.8 g/dL (14.1-18.0); Lymphocytes # 1.2 K/mm3 (0.7-4.5); Mean Corpuscular Volume 88.4 fl (80-94); Mean Platelet Volume 8.4 fl (7.4-10.4); Monocytes # 0.5 K/mm3 (0.1-1.0); Monocytes % 4.5 % (1.7-9.3); Neutrophils # 9.3 K/mm3 (1.8-7.8); Neutrophils % 82.5 % (37.0-80.0); Platelet Count 292 K/mm3 (142-424); Red Cell Distribution Width 13.3 % (11.5-17.5); White Blood Count 11.3 K/mm3 (4.8-10.8)
[2019-08-30 17:48] LABS: Hemoglobin A1C 9.8 % (0.0-7.0)
[2019-08-30 19:01] LABS: Albumin Level 4.1 gm/dL (3.4-5.0); Anion Gap 20.8 mEq/L (5-15); Aspartate Amino Transferase 21 U/L (15-37); Blood Urea Nitrogen 23 mg/dL (7-18); Calcium 8.8 mg/dL (8.5-10.1); Carbon Dioxide 21 mmol/L (21.0-32.0); Chloride 94 mmol/L (98-107); Chol/HDL Ratio 5.2 (1-3.5); Cholesterol 187 mg/dL (140-200); Creatinine,Serum 1.71 mg/dL (0.70-1.30); Estimated Glomerular Filt Rate 40 ml/min (>60); GFR (African American) 49 ML/MIN (>60); HDL Cholesterol 36 mg/dL (27-67); Potassium 4.8 mmoL/L (3.5-5.1); Sodium 131 mmol/L (136-145); T4 (Thyroxine) 1.8 ug/dl (4.7-13.3); Thyroid Stimulating Hormone 2.11 uIU/ml (0.358-3.740)
[2019-08-30 19:08] LABS: Triglycerides 429 mg/dL (30-200)
[2019-08-30 19:17] LABS: Alanine Aminotransferase 31 U/L (12-78); Albumin/Globulin Ratio 1.4 (1.1-1.8); Alkaline Phosphatase 104 U/L (46-116); Bilirubin,Total 0.5 mg/dL (0.2-1.0); Globulin 2.9 gm/dl (1.3-3.2)
[2019-08-30 19:23] LABS: Glucose 400 mg/dL (74-106)
[2019-09-01 06:47] LABS: Creatinine, Urine 50.3 mg/dL (Not Estab.); Microalbumin, Urine 6.8 ug/mL (Not Estab.)
[2019-09-03 14:45] LABS: C-Peptide 4.7 ng/mL (1.1-4.4); Vitamin D 25 Hydroxy 26.9 ng/mL (30.0-100.0)
== END ==
PROVIDERS: Visit Provider Emergency Medicine
DX: E11.9 Type 2 diabetes mellitus without complications (principal); M54.9 Dorsalgia, unspecified; Z79.4 Long term (current) use of insulin
CPT/HCPCS: 80053; 80061; 82043; 82570; 82652; 83036; 84436; 84443; 84681; 85025

== ENCOUNTER → 2019-09-10 14:43 | Outpatient (CLI) | payer MEDICARE, BC, SELFPAY ==
[2019-09-10 16:11] LABS: Anion Gap 15.2 mEq/L (5-15); Blood Urea Nitrogen 14 mg/dL (7-18); Calcium 9.1 mg/dL (8.5-10.1); Carbon Dioxide 28 mmol/L (21.0-32.0); Chloride 96 mmol/L (98-107); Estimated Glomerular Filt Rate 51 ml/min (>60); GFR (African American) 61 ML/MIN (>60); Glucose 223 mg/dL (74-106); Potassium 5.2 mmoL/L (3.5-5.1); Sodium 134 mmol/L (136-145)
== END ==
PROVIDERS: Visit Provider Urology
DX: I25.10 Atherosclerotic heart disease of native coronary artery without angina pectoris (principal)
CPT/HCPCS: 36415; 80048

== ENCOUNTER → 2019-09-26 11:53 | Outpatient (CLI) | payer MEDICARE, BC, SELFPAY ==
[2019-09-26 11:59] LABS: Microscopic, Urine URINE MICROSCOPIC (MICROSCOPIC)
[2019-09-26 12:27] LABS: Basophils # 0.1 K/mm3 (0-0.2); Basophils % 0.6 % (0.1-2.0); Eosinophils # 0.2 K/mm3 (0.0-0.4); Eosinophils % 1.7 % (0.1-12.0); Hematocrit 41.1 % (42.0-52.0); Hemoglobin 14.5 g/dL (14.1-18.0); Lymphocytes # 1.3 K/mm3 (0.7-4.5); Lymphocytes % 14.6 % (10-50); Mean Corpuscular HGB Conc 35.2 g/dL (31.8-35.4); Mean Corpuscular Hemoglobin 29.5 pg (27.0-31.2); Mean Corpuscular Volume 83.9 fl (80-94); Mean Platelet Volume 7.9 fl (7.4-10.4); Monocytes # 0.5 K/mm3 (0.1-1.0); Neutrophils # 6.7 K/mm3 (1.8-7.8); Neutrophils % 77.1 % (37.0-80.0); Platelet Count 247 K/mm3 (142-424); White Blood Count 8.7 K/mm3 (4.8-10.8)
[2019-09-26 12:30] LABS: Appearance,Urine CLEAR (Clear); Bilirubin,Urine Negative (Negative); Blood, Urine Negative (Negative); Color,Urine YELLOW (Yellow); Glucose,Urine (UA) TRACE (Negative); Ketones,Urine Negative (Negative); Leukocyte Esterase,Urine Negative (Negative); Nitrate,Urine Negative (Negative); PH,Urine 6.5 (5.0-8.5); Protein,Urine Negative (Negative); Urobilinogen,Urine 0.2 EU/dl (0.2)
[2019-09-26 12:39] LABS: Creatinine,Urine Random 40 mg/dL (20-320)
[2019-09-26 12:40] LABS: Squamous Epithelial Cell,Urine Occasional #/hpf (0-5)
[2019-09-26 14:15] LABS: Anion Gap 14.3 mEq/L (5-15); Blood Urea Nitrogen 19 mg/dL (7-18); Calcium 8.7 mg/dL (8.5-10.1); Carbon Dioxide 27 mmol/L (21.0-32.0); Chloride 94 mmol/L (98-107); Creatinine,Serum 1.25 mg/dL (0.70-1.30); Estimated Glomerular Filt Rate 58 ml/min (>60); GFR (African American) 70 ML/MIN (>60); Glucose 306 mg/dL (74-106); Phosphorous 3.8 mg/dL (2.4-4.9); Potassium 5.3 mmoL/L (3.5-5.1); Sodium 130 mmol/L (136-145)
[2019-09-26 14:20] LABS: Anion Gap 15.3 mEq/L (5-15); Blood Urea Nitrogen 19 mg/dL (7-18); Carbon Dioxide 27 mmol/L (21.0-32.0); Chloride 93 mmol/L (98-107); Creatinine,Serum 1.29 mg/dL (0.70-1.30); Estimated Glomerular Filt Rate 56 ml/min (>60); GFR (African American) 67 ML/MIN (>60); Glucose 305 mg/dL (74-106); Potassium 5.3 mmoL/L (3.5-5.1); Sodium 130 mmol/L (136-145)
[2019-09-26 14:22] LABS: Calcium 8.7 mg/dL (8.5-10.1)
[2019-09-26 14:25] LABS: Total Protein,Urine Random 3.8 mg/dL (0.0-11.9)
[2019-09-27 06:51] LABS: Vitamin D 25 Hydroxy 44.2 ng/mL (30.0-100.0)
[2019-09-27 14:23] LABS: Calcium, Ionized 5.1 mg/dL (4.5-5.6)
[2019-09-27 17:32] LABS: Parathyroid Hormone Intact 26 pg/mL (15-65)
== END ==
PROVIDERS: Nurse Practitioner Family; Visit Provider Internal Medicine Nephrology
DX: E87.5 Hyperkalemia (principal); N18.3 Chronic kidney disease, stage 3 (moderate)
CPT/HCPCS: 36415; 80048; 80069; 81001; 82330; 82570; 82652; 83970; 84155; 85025

== ENCOUNTER → 2019-09-26 13:06 | Outpatient (POV) | payer MEDICARE, BC, SELFPAY | PROVIDERS: Visit Provider Internal Medicine Nephrology | DX: Z00.00 Encounter for general adult medical examination without abnormal findings (principal) ==

== ENCOUNTER → 2019-10-04 15:28 | Outpatient (CLI) | payer MEDICARE, BC, SELFPAY ==
[2019-10-04 16:43] LABS: Anion Gap 12.9 mEq/L (5-15); Blood Urea Nitrogen 16 mg/dL (7-18); Calcium 8.7 mg/dL (8.5-10.1); Carbon Dioxide 28 mmol/L (21.0-32.0); Chloride 95 mmol/L (98-107); Creatinine,Serum 1.36 mg/dL (0.70-1.30); Estimated Glomerular Filt Rate 52 ml/min (>60); GFR (African American) 63 ML/MIN (>60); Glucose 350 mg/dL (74-106); Potassium 4.9 mmoL/L (3.5-5.1); Sodium 131 mmol/L (136-145)
== END ==
PROVIDERS: Visit Provider Physician Assistant
DX: E11.9 Type 2 diabetes mellitus without complications (principal); E78.5 Hyperlipidemia, unspecified; I11.9 Hypertensive heart disease without heart failure; I25.10 Atherosclerotic heart disease of native coronary artery without angina pectoris; I42.9 Cardiomyopathy, unspecified; I44.0 Atrioventricular block, first degree; J43.9 Emphysema, unspecified; R06.09 Other forms of dyspnea; R91.8 Other nonspecific abnormal finding of lung field; Z95.810 Presence of automatic (implantable) cardiac defibrillator; Z79.4 Long term (current) use of insulin
CPT/HCPCS: 36415; 80048

== ENCOUNTER → 2019-10-07 14:50 | Outpatient (CLI) | payer MEDICARE, BC, SELFPAY ==
--- NOTE | 2019-10-07 14:51 | CT_ITS ---
PROCEDURE: CT CHEST W CON CLINCAL INDICATION: pulmonary nodules Chest pain, follow-up lung nodules COMPARISON: CHESTWO CT chest wo con from 01/03/2018 TECHNIQUE: IV Contrast: 75ml Optiray 350 Axial images obtained with sagittal and coronal reformats. All CT scans at the facility use one or more dose reduction, viz: automated exposure control, ma/kV adjustment per patient size (including targeted exams where dose is matched to indication, i.e. head), or iterative reconstruction technique. FINDINGS: No mediastinal or hilar adenopathy. There are coronary artery calcifications and there is some artifact from pacemaker wires. No mediastinal or hilar mass. There is COPD with centrilobular emphysematous changes. There are mild biapical fibrotic changes. There is an irregular area of increased density in the left upper lobe. This is somewhat more apparent and has more the appearance of an area of fibrosis. Subpleural nodular opacity is present in the left lower lobe superiorly nonspecific Previously noted opacities in the right upper lobe are not significantly changed. Upper abdominal images once again show a small hypodense lesion in the left hepatic lobe at 6 mm not significantly changed IMPRESSION: Overall stable CT appearance of the chest. No suspicious nodules are evident. There is COPD with centrilobular emphysema with scattered areas of fibrosis Dictated by: Rodger Landa MD 10/08/2019 12:20 Electronically signed by Rodger Landa MD in [place] 10/08/2019 12:20
== END ==
PROVIDERS: PCP Emergency Medicine; Visit Provider Nurse Practitioner Family
DX: R91.8 Other nonspecific abnormal finding of lung field (principal)
CPT/HCPCS: 71260; Q9967

== ENCOUNTER → 2019-10-17 12:01 | Outpatient (CLI) | payer MEDICARE, BC, SELFPAY ==
[2019-10-17 13:24] LABS: Anion Gap 12.8 mEq/L (5-15); Blood Urea Nitrogen 13 mg/dL (7-18); Calcium 9.5 mg/dL (8.5-10.1); Carbon Dioxide 30 mmol/L (21.0-32.0); Chloride 96 mmol/L (98-107); Creatinine,Serum 1.41 mg/dL (0.70-1.30); Estimated Glomerular Filt Rate 50 ml/min (>60); GFR (African American) 61 ML/MIN (>60); Glucose 352 mg/dL (74-106); Potassium 4.8 mmoL/L (3.5-5.1); Sodium 134 mmol/L (136-145)
== END ==
PROVIDERS: Visit Provider Nurse Practitioner Family
DX: I25.10 Atherosclerotic heart disease of native coronary artery without angina pectoris (principal); R06.09 Other forms of dyspnea
CPT/HCPCS: 36415; 80048

== ENCOUNTER → 2020-03-30 17:04 | Outpatient (CLI) | payer MEDICARE, BC, SELFPAY ==
[2020-03-30 17:06] LABS: Microscopic, Urine URINE MICROSCOPIC (MICROSCOPIC)
[2020-03-30 17:16] LABS: Basophils # 0.1 K/mm3 (0-0.2); Basophils % 0.6 % (0.1-2.0); Eosinophils # 0.2 K/mm3 (0.0-0.4); Hematocrit 38.7 % (42.0-52.0); Hemoglobin 13.8 g/dL (14.1-18.0); Lymphocytes # 1.7 K/mm3 (0.7-4.5); Lymphocytes % 14.9 % (10-50); Mean Corpuscular HGB Conc 35.6 g/dL (31.8-35.4); Mean Corpuscular Hemoglobin 30.1 pg (27.0-31.2); Mean Corpuscular Volume 84.6 fl (80-94); Monocytes # 0.5 K/mm3 (0.1-1.0); Monocytes % 4.1 % (1.7-9.3); Neutrophils # 9.1 K/mm3 (1.8-7.8); Neutrophils % 78.4 % (37.0-80.0); Platelet Count 250 K/mm3 (142-424); Red Blood Count 4.57 M/mm3 (4.60-6.20); Red Cell Distribution Width 14.2 % (11.5-17.5); White Blood Count 11.5 K/mm3 (4.8-10.8)
[2020-03-30 17:24] LABS: Appearance,Urine CLEAR (Clear); Bilirubin,Urine Negative (Negative); Blood, Urine Negative (Negative); Color,Urine YELLOW (Yellow); Glucose,Urine (UA) 2+ (Negative); Ketones,Urine Negative (Negative); Leukocyte Esterase,Urine Negative (Negative); Nitrate,Urine Negative (Negative); PH,Urine 5.5 (5.0-8.5); Protein,Urine Negative (Negative); Specific Gravity, Urine 1.015 (1.005-1.030); Urobilinogen,Urine 0.2 EU/dl (0.2)
[2020-03-30 17:39] LABS: Creatinine,Urine Random 62 mg/dL (Not Estab.)
[2020-03-30 19:10] LABS: Chloride 93 mmol/L (98-107); Sodium 130 mmol/L (136-145)
[2020-03-30 19:11] LABS: Albumin Level 4.5 g/dl (3.5-5.0); Potassium 4.7 mmoL/L (3.5-5.1)
[2020-03-30 19:13] LABS: Anion Gap 16.7 mEq/L (5-15); Blood Urea Nitrogen 25 mg/dl (9-20); Carbon Dioxide 25 mmol/L (22.0-30.0); Estimated Glomerular Filt Rate 51 ml/min (>60); GFR (African American) 61 ML/MIN (>60)
[2020-03-30 19:14] LABS: Calcium 9.7 mg/dl (8.4-10.2); Glucose 274 mg/dl (74-100); Phosphorous 4.1 mg/dl (2.5-4.5)
[2020-03-30 19:57] LABS: Squamous Epithelial Cell,Urine Occasional #/hpf (0-5); WBC,Urine Occasional #/hpf (0-3)
[2020-03-30 19:58] LABS: Bacteria,Urine Trace /lpf
== END ==
PROVIDERS: Visit Provider Internal Medicine Nephrology
DX: N18.3 Chronic kidney disease, stage 3 (moderate) (principal)
CPT/HCPCS: 36415; 80069; 81001; 82570; 84155; 85025

== ENCOUNTER → 2020-07-29 18:12 | Outpatient (CLI) | payer MEDICARE, BC, SELFPAY ==
[2020-07-29 20:33] LABS: Creatinine,Urine Random 24 mg/dL (Not Estab.)
[2020-07-29 20:36] LABS: Microalbumin/Creatinine Ratio 104.1
== END ==
PROVIDERS: Visit Provider Physician Assistant
DX: E11.9 Type 2 diabetes mellitus without complications (principal); Z79.4 Long term (current) use of insulin
CPT/HCPCS: 82043; 82570

== ENCOUNTER → 2020-08-31 11:48 | Outpatient (CLI) | payer MEDICARE, BC, SELFPAY ==
[2020-08-31 15:50] LABS: Coronavirus 19 IgG Antibody Negative (Negative); Coronavirus 19 IgM Antibody Negative (Negative)
== END ==
PROVIDERS: Visit Provider Surgery
DX: Z01.818 Encounter for other preprocedural examination (principal); Z03.818 Encounter for observation for suspected exposure to other biological agents ruled out; Z12.11 Encounter for screening for malignant neoplasm of colon; Z86.010 Personal history of colon polyps
CPT/HCPCS: 36415; 86328

== ENCOUNTER 2020-09-01 08:36 | Day surgery (SDC) | payer MEDICARE, BC, SELFPAY ==
[2020-09-01 08:55] VITALS: BP 182/55; PULSE 72; RESP 16; TEMP 36.4; O2SAT 98; BMI 31.1
--- NOTE | 2020-09-01 09:09 | P.PN_ITS ---
[facility] Anesthesia Checklist - Patient Identification Patient Identification: Arm Band, Verbal (Name & ) - Structural Data Admitted From: Home Planned Operative Procedure/s: colon Consent for Planned Operative Procedure(s) Verified: Yes Verified Documents: History and Physical - NPO Status Verified Time NPO: 00:00 - Additional verifications Patient : No Anesthesia Reactions: No Hx Blood Transfusions: No Blood Transfusion Reaction: No Cephalosporin Allergy: No Previous Colonoscopy: Yes - Cardiovascular Assessment Heart Sounds: S1 & S2 Pulse Strength: Baseline Pulse Rhythm: Regular Peripheral Edema: No - Airway Assessment C-Spine Mobility Assessed: Yes TMJ Mobility Assessed: Yes Dentition: Edentulous - Neurological Assessment Level of Consciousness: Awake, Alert, Appropriate Hx Seizures: No Numbness or tingling in extremities: No - Anesthesia Plan Anesthesia Risk discussed: Yes Anesthesia Plan: Verified ASA Class: III Anesthesia Type: MAC [facility] History I have reviewed the patient's past medical history: Yes Medical History: Reports:: Arrhythmia, BPH, Cardiomyopathy, Chronic Obstructive Pulmonary Disease (COPD), Congenital Heart Disease, Coronary Artery Disease, Depression, Diabetes Mellitus Type 2, Gastroesophageal Reflux Disease(GERD), Hyperlipidemia, Hypertension, Internal Pacemaker Denies:: Cancer, Diabetes Mellitus Type 1, Lung Disease, MRSA, Seizures *Have you ever received a pneumonia vaccine?: No *Have you received a flu vaccine this season?: No Other Medical History: Denies: Blood Transfusion Reaction Anesthesia experience/problems:: none Other Surgeries: Yes: Angiogram, Cardiac Catheterization, Cardiac Surgery, Colonoscopy, Coronary Stent, Pacemaker, Other Amputation: No Fractures: No - *Social History Last grade of school completed: 7th or 8th Smoking Status: Never smoker Tobacco Type: cigarettes Alcohol Intake: never Alcohol Intake Frequency:: other Substance Use Type: denies use *Occupational Status:: retired Housing: house Household Members: spouse *Travel in the last 8 weeks: None - Psychiatric History Pschychiatric History:: Reports:: Depression Family Hx:: Asthma, Cancer, Coronary Artery Disease, Diabetes, Hyperlipidemia, Hypertension, Stroke
--- NOTE | 2020-09-01 09:10 | P.PCN_ITS ---
- Procedure: Date: 09/01/20 Patient Date of :: 1955 Procedure Performed:: Total colonoscopy to cecum with polypectomy by snare and biopsy forceps Indications:: Patient is 65-year-old white male from [place], [place] with history of diabetes, heart disease, first-degree AV block, history of congestive heart failure, coronary artery disease, hypertension, previous AICD placement with a family history of colon cancer referred by Maria Guadalupe Sequeira for colonoscopy. Patient's son was diagnosed with obstructive colon cancer at age 39 and underwent en bloc resection in September 2014. He ultimately had developed liver metastases and required liver resection. Patient also states that his father was diagnosed with widely metastatic colon cancer. I Performed initial screening colonoscopy on him in July 2018. His colonoscopy was actually rather unremarkable revea ling only a single tubular adenoma in the ascending colon and several hyperplastic polyps. He did however have somewhat of a poor colonic preparation. Due to his strong family history, adenomatous polyps, and suboptimal bowel preparation I recommended a 2-year follow-up colonoscopy. He does state that he has had a lifelong history of constipation. Performing Provider:: Immanuel Masters MD Referring Provider:: Maria Guadalupe Sequeira Sedation:: MAC sedation Procedure:: Patient was taken to endoscopy procedure room. He was positioned in lateral decubitus position. Adequate intravenous sedation was achieved with anesthesia titration of propofol. Variable stiffness Olympus colonoscope was inserted via the anus. With some minor difficulty due to some floppiness and redundancy of the sigmoid colon it was advanced to the cecum. Ileocecal valve and appendiceal orifice were identified. Colonoscope was withdrawn through the colon with careful surveillance. In the ascending colon there was a minor irregularity along a mucosal ridge. Biopsy was obtained. There was a polyp at the hepatic f lexure that was removed with cold cutting snare. Hemoclip was deployed at the polypectomy site. In the sigmoid colon there was an unusual appearing polyp which may be merely prolapsed mucosa removed with cold cutting snare. Rectosigmoid there were a couple of likely hyperplastic appearing polyps removed with forceps. In the rectum there was a likely hyperplastic polyp removed with cold cutting snare. Retroflexion revealed no evidence of any pathologic internal hemorrhoids. Findings:: Irregularity of mucosal ridge of ascending colon biopsied Hepatic flexure polyp removed with cold cutting snare, Hemoclip deployed Sigmoid polyp removed with cold cutting snare Rectosigmoid polyps removed with biopsy forceps Rectal polyp removed with cold cutting snare Recommendations:: Repeat colonoscopy in 2 years. However, if there is any adenomatous component to the irregularity in the ascending colon ridge may need early follow-up colonoscopy. Complications:: None Estimated blood obtained (mL): 2
[2020-09-01 09:11] LABS: POC Glucose,Bedside 154 (70-110)
[2020-09-01 09:18] VITALS: O2SAT 97
[2020-09-01 10:01] VITALS: BP 103/61; PULSE 64; RESP 12; TEMP 36.6; O2SAT 93
[2020-09-01 10:11] VITALS: BP 102/52; PULSE 64; RESP 16; O2SAT 97
[2020-09-01 10:16] LABS: POC Glucose,Bedside 169 (70-110)
[2020-09-01 10:21] VITALS: BP 120/66; PULSE 65; RESP 16; O2SAT 94
[2020-09-01 10:31] VITALS: BP 134/77; PULSE 63; RESP 16; TEMP 36.6; O2SAT 96
== END 2020-09-01 10:38 | disposition home or self-care (01) ==
LOC: OUTP 08:37
PROVIDERS: PCP Physician Assistant; Visit Provider Surgery
PROC: 0DJD8ZZ Inspection of Lower Intestinal Tract, Via Natural or Artificial Opening Endoscopic (ICD-10-PCS; CPT 45385; principal; 2020-09-01 09:30)
DX: Z12.11 Encounter for screening for malignant neoplasm of colon (principal); K63.5 Polyp of colon; K63.9 Disease of intestine, unspecified; K62.1 Rectal polyp; Z87.19 Personal history of other diseases of the digestive system; Z95.810 Presence of automatic (implantable) cardiac defibrillator; Z85.05 Personal history of malignant neoplasm of liver; Z85.038 Personal history of other malignant neoplasm of large intestine; Z80.0 Family history of malignant neoplasm of digestive organs; E11.9 Type 2 diabetes mellitus without complications; I11.0 Hypertensive heart disease with heart failure; I50.20 Unspecified systolic (congestive) heart failure; I44.0 Atrioventricular block, first degree; I25.10 Atherosclerotic heart disease of native coronary artery without angina pectoris
CPT/HCPCS: 45385; 82962; 88305

== ENCOUNTER → 2020-10-01 17:04 | Outpatient (CLI) | payer MEDICARE, BC, SELFPAY ==
[2020-10-01 17:29] LABS: Microscopic, Urine URINE MICROSCOPIC (MICROSCOPIC)
[2020-10-01 18:18] LABS: Basophils # 0.1 K/mm3 (0-0.2); Basophils % 0.8 % (0.1-2.0); Eosinophils # 0.1 K/mm3 (0.0-0.4); Eosinophils % 1.5 % (0.1-12.0); Hematocrit 38.4 % (42.0-52.0); Hemoglobin 13.1 g/dL (14.1-18.0); Lymphocytes # 1.1 K/mm3 (0.7-4.5); Mean Corpuscular HGB Conc 34.1 g/dL (31.8-35.4); Mean Corpuscular Hemoglobin 28.7 pg (27.0-31.2); Mean Corpuscular Volume 84.2 fl (80-94); Mean Platelet Volume 8.4 fl (7.4-10.4); Monocytes # 0.5 K/mm3 (0.1-1.0); Monocytes % 6.1 % (1.7-9.3); Neutrophils % 77.6 % (37.0-80.0); Platelet Count 251 K/mm3 (142-424); Red Blood Count 4.56 M/mm3 (4.60-6.20); Red Cell Distribution Width 13.5 % (11.5-17.5); White Blood Count 7.8 K/mm3 (4.8-10.8)
[2020-10-01 18:18] LABS: Appearance,Urine CLEAR (Clear); Bilirubin,Urine Negative (Negative); Blood, Urine Negative (Negative); Color,Urine YELLOW (Yellow); Glucose,Urine (UA) 1+ (Negative); Ketones,Urine Negative (Negative); Leukocyte Esterase,Urine Negative (Negative); Nitrate,Urine Negative (Negative); PH,Urine 5.5 (5.0-8.5); Protein,Urine Negative (Negative); Specific Gravity, Urine 1.015 (1.005-1.030); Urobilinogen,Urine 0.2 EU/dl (0.2)
[2020-10-01 18:28] LABS: Creatinine,Urine Random 50 mg/dL (Not Estab.)
[2020-10-01 18:34] LABS: WBC,Urine Occasional #/hpf (0-3)
[2020-10-01 18:41] LABS: Hemoglobin A1C 10.4 % (4.0-6.0)
[2020-10-01 19:56] LABS: Alanine Aminotransferase 24 U/L (12-78); Albumin Level 4.5 g/dl (3.5-5.0); Albumin/Globulin Ratio 1.9 (1.1-1.8); Alkaline Phosphatase 100 U/L (38-126); Anion Gap 14.6 mEq/L (5-15); Aspartate Amino Transferase 27 U/L (17-59); Bilirubin,Total 0.5 mg/dl (0.2-1.3); Blood Urea Nitrogen 28 mg/dl (9-20); Calcium 9.4 mg/dl (8.4-10.2); Carbon Dioxide 27 mmol/L (22.0-30.0); Chloride 89 mmol/L (98-107); Cholesterol 186 mg/dl (140-200); Estimated Glomerular Filt Rate 55 ml/min (>60); GFR (African American) 67 ML/MIN (>60); Globulin 2.4 g/dL (1.3-3.2); Glucose 301 mg/dl (74-100); HDL Cholesterol 37 mg/dl (40-60); Potassium 4.6 mmoL/L (3.5-5.1); Sodium 126 mmol/L (136-145); Total Protein,Serum 6.9 g/dl (6.3-8.2)
[2020-10-01 20:07] LABS: Triglycerides 450 mg/dl (30-150)
[2020-10-01 20:08] LABS: Direct LDL Cholesterol 71.11 mg/dL (100-129)
[2020-10-01 20:09] LABS: Intact Parathyroid Hormone 50.4 pg/mL (7.5-53.5)
[2020-10-01 20:13] LABS: T4 (Thyroxine) 8.6 ug/dl (5.53-11.0)
[2020-10-01 20:14] LABS: 25-OH Vitamin D, Total 44.4 ng/mL (30-100)
[2020-10-01 20:27] LABS: Prostate Specific Ag Screen 0.5 ng/ml (0.0-4.0); Thyroid Stimulating Hormone 2.34 uIU/mL (0.465-4.68)
== END ==
PROVIDERS: Physician Assistant; Visit Provider Internal Medicine Nephrology
DX: R60.9 Edema, unspecified (principal); S81.811A Laceration without foreign body, right lower leg, initial encounter; E11.9 Type 2 diabetes mellitus without complications; Z12.5 Encounter for screening for malignant neoplasm of prostate; Z79.4 Long term (current) use of insulin; Z68.31 Body mass index [BMI] 31.0-31.9, adult
CPT/HCPCS: 36415; 80053; 80061; 80069; 81001; 82306; 82570; 83036; 83970; 84100; 84155; 84436; 84443; 85025; G0103

== ENCOUNTER → 2020-10-05 14:04 | Outpatient (POV) | payer MEDICARE, BC, SELFPAY | PROVIDERS: Visit Provider Internal Medicine Nephrology | DX: Z00.00 Encounter for general adult medical examination without abnormal findings (principal) ==

== ENCOUNTER 2020-12-28 13:00 | Emergency (ER) | payer MEDICARE, BC, SELFPAY ==
[2020-12-28 13:24] VITALS: BP 166/88; PULSE 74; RESP 14; TEMP 36.6; O2SAT 98; BMI 32.8
--- NOTE | 2020-12-28 13:58 | HMH.EDUTC ---
[facility] Disposition Clinical Impression: Exposure to COVID-19 virus Disposition: Home, Self-Care Condition on Discharge: Good Instructions: Preventing the Spread of Coronavirus Discharge Instructions Additional Instructions: Drink plenty of fluids. Take tylenol or ibuprofen for pain or fever. Follow up with your regular doctor. GO TO THE ER FOR ANY WORSENING SYMPTOMS Referrals: Maria Guadalupe Sequeira PA [Primary Care Provider] - Time of Disposition: 13:59 Medical Decision Making - Medical Records Medical records reviewed: No: I reviewed the patient's medical records. - [place] Inquiry Pt receiving controlled substance: No Vital Signs: 12/28/20 13:24 12/28/20 13:59 Temperature 97.9 F 98 F Temperature Source Tympanic Pulse Rate 79 Pulse Rate [Right] 74 Respiratory Rate 14 16 Blood Pressure 159/92 H Blood Pressure [Right Arm] 166/88 H Blood Pressure Mean [Right Arm] 114 Blood Pressure Source [Right Arm] Automatic Cuff Blood Pressure Position [Right Arm] Sitting 02 Sat by Pulse Oximetry 98 Oxygen Delivery Method Room Air [facility] HPI - General Stated complaint: cov test Time Seen by Provider: 12/28/20 13:30 Mode of Arrival: Ambulatory Source of Information: Patient Limitations: No Limitations Description of Symptoms (Recalled from Triage Doc. by RN): pt is asymptomatic and no exposure to covid. pt state, I decided I'm 65 and its about time I get tested. HEENT Symptoms (Recalled from RN notes): No Resp Symptoms (Recalled from RN notes): No Skin Symptoms (Recalled from RN notes): No MS Symptoms (Recalled from RN notes): No Functional Status (Recalled from RN notes): na - History of Present Illness Provider Complaint: He is here ot have a covid test. He denies any symptoms. He was exposed last week. - Related Data Home Medications Medication Instructions Recorded Confirmed aspirin 325 mg tablet 325 mg PO DAILY 07/29/20 11/27/20 Clopidogrel Bisulfate [Plavix] 75 mg PO DAILY 09/01/20 11/27/20 buPROPion HCL [Wellbutrin SR] 150 mg PO BID 09/01/20 11/27/20 omeprazole 20 mg capsule,delayed 20 mg PO DAILY cap 12/22/20 12/22/20 release pravastatin 80 mg tablet 80 mg PO HS tab 12/22/20 12/22/20 sitagliptin 100 mg tablet 100 mg PO DAILY tab 12/22/20 12/22/20 tamsulosin 0.4 mg capsule 0.4 mg PO DAILY cap 12/22/20 12/22/20 Previous Rx's Medication Instructions Recorded insulin detemir U-100 100 unit/mL See Rx Instructions .ROUTE 10/12/20 subcutaneous solution .COMPLEX #10 ml gabapentin 800 mg tablet 800 mg PO BID 30 Days #60 tab 11/27/20 insulin human U-100 NPH-regulr See Rx Instructions .ROUTE 12/02/20 70-30 mix 100 unit/mL subcutaneous .COMPLEX #10 ml susp furosemide 20 mg tablet 20 mg PO DAILY #30 tab 12/22/20 lisinopril 20 mg tablet 20 mg PO BID #60 tab 12/22/20 metoprolol succinate 50 mg 50 mg PO BID #60 tab 12/22/20 tablet,extended release 24 hr spironolactone 50 mg tablet 50 mg PO DAILY #90 tab 12/22/20 metformin 1,000 mg tablet See Rx Instructions .ROUTE 12/23/20 .COMPLEX #180 tab Allergies Allergy/AdvReac Type Severity Reaction Status Date / Time No Known Allergies Allergy Verified 12/22/20 13:13 - Worker's Comp Is this a Worker's Comp case?: No [facility] History - Hepatitis A Screen Drug use history?: No High risk sexual behaviors?: No History of sexually transmitted infection?: No Currently employed?: No Childcare worker?: No Do you have indoor plumbing?: Yes Do you have electricity?: Yes Attestation statement:: This patient has been screened for Hepatitis A risk factors. I have reviewed the patient's past medical history: Yes Medical History: Reports:: Arrhythmia, BPH, Cardiomyopathy, Chronic Obstructive Pulmonary Disease (COPD), Congenital Heart Disease, Coronary Artery Disease, Depression, Diabetes Mellitus Type 2, Gastroesophageal Reflux Disease(GERD), Hyperlipidemia, Hypertension, Internal Pacemaker Denies:: Cancer, Diabetes Melli
[2020-12-28 13:59] VITALS: BP 159/92; PULSE 79; RESP 16; TEMP 36.6
== END 2020-12-28 14:04 | disposition home or self-care (01) ==
PROVIDERS: Emergency Provider Nurse Practitioner Family; PCP Physician Assistant
DX: Z20.822 Contact with and (suspected) exposure to COVID-19 (principal); N40.0 Benign prostatic hyperplasia without lower urinary tract symptoms; J44.9 Chronic obstructive pulmonary disease, unspecified; I25.10 Atherosclerotic heart disease of native coronary artery without angina pectoris; E11.9 Type 2 diabetes mellitus without complications; K21.9 Gastro-esophageal reflux disease without esophagitis; E78.5 Hyperlipidemia, unspecified; I10 Essential (primary) hypertension; Z95.0 Presence of cardiac pacemaker; Z87.891 Personal history of nicotine dependence; Z79.899 Other long term (current) drug therapy
CPT/HCPCS: G0463; 99202; U0003

== ENCOUNTER → 2021-04-01 13:28 | Outpatient (CLI) | payer MEDICARE, BC, SELFPAY ==
[2021-04-01 13:35] LABS: Microscopic, Urine URINE MICROSCOPIC (MICROSCOPIC)
[2021-04-01 14:05] LABS: Appearance,Urine CLEAR (Clear); Bilirubin,Urine Negative (Negative); Blood, Urine Negative (Negative); Color,Urine YELLOW (Yellow); Glucose,Urine (UA) 2+ (Negative); Ketones,Urine Negative (Negative); Leukocyte Esterase,Urine Negative (Negative); Nitrate,Urine Negative (Negative); PH,Urine 5.5 (5.0-8.5); Protein,Urine Negative (Negative); Urobilinogen,Urine 0.2 EU/dl (0.2)
[2021-04-01 14:16] LABS: Squamous Epithelial Cell,Urine Occasional #/hpf (0-5)
[2021-04-01 14:28] LABS: Creatinine,Urine Random 87 mg/dL (Not Estab.)
[2021-04-01 14:32] LABS: Basophils # 0.1 K/mm3 (0-0.2); Basophils % 0.6 % (0.1-2.0); Eosinophils # 0.2 K/mm3 (0.0-0.4); Eosinophils % 2.5 % (0.1-12.0); Hematocrit 32.9 % (42.0-52.0); Hemoglobin 11.7 g/dL (14.1-18.0); Lymphocytes # 1.1 K/mm3 (0.7-4.5); Lymphocytes % 11.5 % (10-50); Mean Corpuscular HGB Conc 35.6 g/dL (31.8-35.4); Mean Corpuscular Hemoglobin 28.8 pg (27.0-31.2); Mean Platelet Volume 8.1 fl (7.4-10.4); Monocytes # 0.6 K/mm3 (0.1-1.0); Monocytes % 6.2 % (1.7-9.3); Neutrophils # 7.4 K/mm3 (1.8-7.8); Neutrophils % 79.3 % (37.0-80.0); Platelet Count 239 K/mm3 (142-424); Red Blood Count 4.06 M/mm3 (4.60-6.20); Red Cell Distribution Width 13.7 % (11.5-17.5); White Blood Count 9.4 K/mm3 (4.8-10.8)
[2021-04-01 15:08] LABS: Albumin Level 4.5 g/dl (3.5-5.0); Anion Gap 19.4 mEq/L (5-15); Blood Urea Nitrogen 25 mg/dl (9-20); Calcium 9.2 mg/dl (8.4-10.2); Carbon Dioxide 24 mmol/L (22.0-30.0); Chloride 94 mmol/L (98-107); Estimated Glomerular Filt Rate 47 ml/min (>60); GFR (African American) 56 ML/MIN (>60); Glucose 334 mg/dl (74-100); Phosphorous 4.7 mg/dl (2.5-4.5); Potassium 5.4 mmoL/L (3.5-5.1); Sodium 132 mmol/L (136-145)
[2021-04-03 07:57] LABS: Sodium, Urine 35 mmol/L (Not Estab.)
[2021-04-04 14:14] LABS: Osmolality, Urine 325 mOsmol/kg (.)
== END ==
PROVIDERS: Visit Provider Internal Medicine Nephrology
DX: N18.30 Chronic kidney disease, stage 3 unspecified (principal)
CPT/HCPCS: 36415; 80069; 81001; 82570; 83930; 83935; 84155; 84300; 85025

== ENCOUNTER → 2021-04-05 12:49 | Outpatient (POV) | payer MEDICARE, BC, SELFPAY | PROVIDERS: Visit Provider Internal Medicine Nephrology | DX: Z00.00 Encounter for general adult medical examination without abnormal findings (principal) ==

== ENCOUNTER → 2021-07-13 11:43 | Outpatient (CLI) | payer MEDICARE, BC, SELFPAY ==
--- NOTE | 2021-07-13 | CA_ITS ---
APPROVED REPORT Exam: Pharmacologic Technologist: Veronica Garcia Ht: 6 ft 0 in Wt: 246 lbs BSA: 2.33 m2 HR: 62 bpm BP: 115/66 mmHg Indications: Chest pain, Shortness of Breath Medical History Medications: Lisinopril, Omeprazole, Aspirin, Metoprolol, Pravastatin, Metformin, Gabapentin, Tamsulosin, Clopidogrel, Januvia, Spironolactone, Levemir Stress Test Details Test: LEXISCAN HR Resting HR: 64 bpm Max Heart Rate (APMHR): 152.753528 bpm Max HR Achieved: 78 bpm Target HR (85% APMHR): 129.632726 bpm % of APMHR: 51.32 Recovery HR: 66 bpm BP Resting BP: 115.0/66.0 mmHg Max BP: 146.0/68.0 mmHg Recovery BP: 123.0/61.0 mmHg ECG Clinical Reason for Termination: Completed Protocol Exercise duration: 04:00 min Highest Stage Achieved: Exercise capacity: 1.0 METs Stress ECG Conclusion Non-diagnostic lexiscan stress test. Patient received the infusion per protocol without chest pain, ST segment changes or arrhythmias. See the nuclear report for further information. Baseline EKG is V. pacing. Electronically signed by : Marvin Alexander MD 07/14/2021 06:35:49
--- NOTE | 2021-07-13 11:44 | NM_ITS ---
APPROVED REPORT Exam: Nuclear Stress Test Indication: chest pain..short of breath..syncope..fatigue Patient Location: Outpatient Stress Tech: Veronica Garcia [place] Tech:JOSE Nieto RT(R)(N) Ht: 6 ft 0 in Wt: 242 lbs HR: 62 bpm BP: 115/66 mmHg BSA: 2.31 m2 History: chest pain..short of breath..syncope..fatigue Procedure: Patient received a 0.4 mg of intravenous Lexiscan, resting heart rate 62 bpm, resting blood pressure 115/66 mmHg, with Lexiscan maximum heart rate achived was 72 bpm which is Less than 85 % of the maximum predicted heart rate and blood pressure was 128/61 mmHg. With Lexiscan, patient denied any complaint of chest pain. Electrocardiogram Resting electrocardiogram showed sinus rhythm right bundle branch block, with Lexiscan there is less than 1.[address] segment depression noted from the baseline EKG. The EKG portion of the Lexiscan is nondiagnostic. Cardiac Stress and Resting SPECT Images: Cardiac Stress and Resting SPECT images were obtained using technetium 99m Myoview 31.7 mCi stress and 10.80 mCi at rest. Gated SPECT for analysis of segmental wall motion and calculation of the ejection fraction also done. Cardiac stress and resting SPECT images show uniform myocardial activity without segmental perfusion abnormality, computer derived ejection fraction is 47% with no regional wall motion abnormality, right ventricle is normal size and contractility. Conclusion: 1. The EKG portion of the Lexiscan is nondiagnostic. 2. No scintigraphic evidence of reversible ischemia seen, computer derived ejection fraction is 47% with no segmental wall motion abnormality, right ventricle is normal size and contractility. 3. Normal Lexiscan Myoview study except for low normal ejection fraction. Electronically signed by : Marvin Alexander MD 07/14/2021 06:40:11
--- NOTE | 2021-07-13 12:28 | CA_ITS ---
APPROVED REPORT EXAM: Comprehensive 2D, Doppler, and color-flow Echocardiogram Agricultural Produce Packer: Sayra Lomas RVT Ht: 6 ft 0 in Wt: 246lbs BSA: 2.33 BP: 136/72 mmHg Indications: CP,SOA,CM,AICD,EX SMOKER,FATIGUE,OBESITY,DM,HTN,HLD TDS 2D Dimensions LVOT 2.00 cm (M/F) 1.5-2.5 LA Volume 25.90 mL LA Volume Index 11.16 mL/m2 (M/F) 16-34 M-Mode Dimensions RVDd 2.83 cm (0.9-2.6) LA Diam 3.91 cm (1.9-4.0) LVDd 4.46 cm (3.5-5.7) Ao Diam 3.11 cm (2.0-3.7) LVDs 3.90 cm (3.5-5.7) IVSd 1.25 cm (0.6-1.1) PWd 0.86 cm (0.6-1.1) EF (Teich) 27.20% FS 12.60% EDV (Teich) 90.50 mL TAPSE 2.32 (<1.7) ESV (Teich) 65.90 mL LV Diastology E Decel Time 183.00 (160-240 msec) E/A Ratio 1.4 MED E' 6.40 (< 7 cm/sec) E'/MED E' Ratio 12.88 (>14) LAT E' 11.60 (<10 cm/sec) E/LAT E' Ratio 7.10 (>14) Aortic Valve AO Peak GR. 4.80 mmHg Mitral Valve MV E Max John. 82.00 (40-130 cm/s) MV A Velocity 59.00 (40-130 cm/s) E/A Ratio 1.39 MV Decel. Time 183.00 (160-240 ms) MV PHT 54.00 ms Pulmonary Valve PV Peak Velocity 63.00 (50-150 cm/s) Tricuspid Valve TR P. Velocity 258.00 cm/s RAP Estimate 10.00 mmHg RVSP 36.60 mmHg Left Ventricle Left atrium is mildly enlarged, left ventricle is normal size, mild concentric left ventricular hypertrophy, visually estimated ejection fraction 50%, there is abnormal septal motion. Diastolic parameters are inconclusive. Right Ventricle Right atrium and right ventricle are normal size and contractility, there is an AICD lead seen right ventricle. Aortic Valve Aortic valve is minimally thickened and fibrosed, there is no aortic stenosis or aortic insufficiency. Mitral Valve Mitral valve grossly normal, there is trace mitral regurgitation. Tricuspid Valve Tricuspid valve grossly normal, there is trace tricuspid regurgitation. Tricuspid regurgitation jet velocity is inadequate for calculation of the right ventricular systolic pressure. Pulmonic Valve Pulmonic valve is poorly visualized. Great Vessels Aortic root is normal size. Pericardium No significant pericardial effusion noted. Conclusion 1. Mildly enlarged left atrium, normal left ventricular size, mild concentric left ventricular hypertrophy, visually estimated ejection fraction 50%, there is abnormal septal motion, diastolic parameters are inconclusive. 2. Trace mitral and tricuspid regurgitation. 3. No significant pericardial effusion noted. Electronically signed by : Marvin Alexander MD 07/13/2021 21:08:00
--- NOTE | 2021-07-13 14:13 | HMH.ITSHM ---
Current Home Medications as stated by this patient Neo Moreno or special service representative. []TAMSULOSIN SPIRONOLACTONE SITAGLIPTIN PRAVASTATIN OMEPRAZOLE METOPROLOL METFORMIN LISINOPRIL INSULIN GABAPENTIN FUROSEMIDE CLOPIDOGREL ASA
== END ==
PROVIDERS: PCP Nurse Practitioner Family; Visit Provider Nurse Practitioner Family
DX: E11.9 Type 2 diabetes mellitus without complications (principal); E78.2 Mixed hyperlipidemia; I11.0 Hypertensive heart disease with heart failure; I25.10 Atherosclerotic heart disease of native coronary artery without angina pectoris; I25.5 Ischemic cardiomyopathy; I44.0 Atrioventricular block, first degree; I50.20 Unspecified systolic (congestive) heart failure; J43.9 Emphysema, unspecified; R06.00 Dyspnea, unspecified; R07.9 Chest pain, unspecified; Z95.810 Presence of automatic (implantable) cardiac defibrillator; Z79.4 Long term (current) use of insulin
CPT/HCPCS: 78452; 93017; 93306; A9502; J2785

== ENCOUNTER → 2021-08-30 15:55 | Outpatient (CLI) | payer MEDICARE, BC, SELFPAY ==
[2021-08-30 16:28] LABS: Hematocrit 34.9 % (42.0-52.0); Hemoglobin 12.4 g/dL (14.1-18.0); Mean Corpuscular HGB Conc 35.5 g/dL (31.8-35.4); Mean Corpuscular Hemoglobin 29.3 pg (27.0-31.2); Mean Corpuscular Volume 82.5 fl (80-94); Platelet Count 338 K/mm3 (142-424); Red Blood Count 4.23 M/mm3 (4.60-6.20); Red Cell Distribution Width 13.8 % (11.5-17.5); White Blood Count 9.8 K/mm3 (4.8-10.8)
[2021-08-30 17:49] LABS: Microscopic, Urine URINE MICROSCOPIC (MICROSCOPIC)
[2021-08-30 18:47] LABS: Appearance,Urine CLEAR (Clear); Bilirubin,Urine Negative (Negative); Blood, Urine Negative (Negative); Color,Urine YELLOW (Yellow); Glucose,Urine (UA) Negative (Negative); Ketones,Urine Negative (Negative); Leukocyte Esterase,Urine Negative (Negative); Nitrate,Urine Negative (Negative); Protein,Urine Negative (Negative); Urobilinogen,Urine 0.2 EU/dl (0.2)
[2021-08-30 19:19] LABS: Squamous Epithelial Cell,Urine Occasional #/hpf (0-5); WBC,Urine Occasional #/hpf (0-3)
[2021-08-30 19:35] LABS: Albumin Level 4.8 g/dl (3.5-5.0); Anion Gap 14.1 mEq/L (5-15); Blood Urea Nitrogen 17 mg/dl (9-20); Carbon Dioxide 27 mmol/L (22.0-30.0); Chloride 91 mmol/L (98-107); Estimated Glomerular Filt Rate 50 ml/min (>60); GFR (African American) 61 ML/MIN (>60); Glucose 105 mg/dl (74-100); Phosphorous 4.9 mg/dl (2.5-4.5); Potassium 5.1 mmoL/L (3.5-5.1); Sodium 127 mmol/L (136-145)
[2021-08-30 20:20] LABS: Creatinine,Urine Random 49 mg/dL (Not Estab.)
== END ==
PROVIDERS: Visit Provider Internal Medicine Nephrology
DX: N18.30 Chronic kidney disease, stage 3 unspecified (principal)
CPT/HCPCS: 36415; 80069; 81001; 82570; 84155; 85014; 85018; 85048; 85049

== ENCOUNTER → 2021-08-30 17:41 | Outpatient (CLI) | payer MEDICARE, BC, SELFPAY | PROVIDERS: Visit Provider Internal Medicine Nephrology | DX: N18.30 Chronic kidney disease, stage 3 unspecified (principal) | CPT/HCPCS: 36415; 80069; 81001; 82570; 84155; 85014; 85018; 85048; 85049 ==

== ENCOUNTER → 2021-09-06 15:18 | Outpatient (POV) | payer MEDICARE, BC, SELFPAY | PROVIDERS: Visit Provider Internal Medicine Nephrology | DX: Z00.00 Encounter for general adult medical examination without abnormal findings (principal) ==

== ENCOUNTER 2022-06-23 12:52 | Inpatient (IN) | payer MEDICARE, BC, SELFPAY ==
[2022-06-23] VITALS (8 sets, daily range): BP systolic 152–197; BP diastolic 74–97; PULSE 60–71; RESP 17–21; TEMP 36.4–36.7; O2SAT 94–98; BMI 32.5; BMI 34.7
--- NOTE | 2022-06-23 13:05 | ECG_ITS ---
APPROVED REPORT Exam: Resting ECG HR:65 bpm ECG Measurements Heart Rate 65 AXES NE 154 P -56 QRSd 109 QRS 255 QT 396 T 19 QTc 407 Conclusion ELECTRONIC VENTRICULAR PACEMAKER ABNORMAL RHYTHM ECG UNCONFIRMED REPORT Electronically signed by : Hussain Ramirez MD 06/23/2022 15:56:10
--- NOTE | 2022-06-23 13:13 | HMH.EDGENADL ---
Discharge Plan Disposition Patient Disposition: Admitted As Inpatient Condition: Fair Prescriptions Prescriptions: No Action aspirin 81 mg tablet,delayed release (DR/EC) 81 mg PO DAILY sildenafil 100 mg tablet 100 mg PO DAILY PRN (Reason: sexual activity) Qty: 15 0RF Rx Instructions: administer 30 minutes to 4 hours before activity spironolactone 50 mg tablet 50 mg PO DAILY Qty: 90 2RF gabapentin 800 mg tablet 800 mg PO BID 30 Days Qty: 60 3RF metoprolol succinate 50 mg tablet extended release 24 hr 50 mg PO BID lisinopril 20 mg tablet 20 mg PO BID Humulin 70/30 U-100 Insulin 100 unit/mL (70-30) suspension 23 unit SQ TIDWMEAL clopidogrel 75 mg tablet 75 mg PO DAILY pravastatin 80 mg tablet 80 mg PO DAILY tamsulosin 0.4 mg capsule 0.4 mg PO DAILY metformin 1,000 mg tablet 1,000 mg PO BID omeprazole 20 mg capsule,delayed release(DR/EC) 20 mg PO DAILY furosemide 20 mg tablet 20 mg PO DAILY (DME) pen needle, diabetic [Lite Touch Insulin Pen [place]] 31 gauge x 5/16 needle See Rx Instructions MISCELLANEOUS Rx Instructions: QID injections of insulin bupropion HCl 150 mg tablet extended release 24 hr 150 mg PO DAILY Levemir U-100 Insulin 100 unit/mL solution 21 unit SQ HS Januvia 100 mg tablet 100 mg PO DAILY Referrals Follow up/Referrals: Truong Araya MD [Primary Care Provider] - See instructions Clinical Impressions Clinical Impression: CHF (congestive heart failure), Non-ST elevation (NSTEMI) myocardial infarction Discharge ED Provider: Rickey Herrera General Adult HPI General Chief complaint: Shortness of Breath/Dyspnea Stated complaint: sob Time Seen by Provider: 06/23/22 13:16 History of Present Illness HPI narrative: 67-year-old male, history of CAD status post stents approximately 1 to 2 years ago, systolic heart failure, type 2 diabetes, hypertension, cardiomyopathy, prior pacemaker placement. He is on 20 mg of Lasix p.o. twice daily. He presents today with complaint of worsening of breath, states has noticed it ongoing over a month but over the last 2 to 3 days has had significant worsening to the point where if he tries to bend over he would be significantly short of breath or if he lies flat. He is also noted difficulty sleeping as well as worsening bilateral lower extremity edema. He says about 2 days ago he had sensation like someone was sitting on his chest which abated spontaneously. Currently he reports just mild tightness but primarily difficulty breathing. He does not wear oxygen at home and has not tried any treatments prior to this visit. Related Data Home Medications Medication Instructions Recorded Confirmed aspirin 81 mg tablet,delayed 81 mg PO DAILY heart 06/22/21 06/23/22 release bupropion HCl 150 mg 24 hr tablet, 150 mg PO DAILY mood 06/23/22 06/23/22 extended release clopidogrel 75 mg tablet 75 mg PO DAILY Heart 06/23/22 06/23/22 furosemide 20 mg tablet 20 mg PO DAILY Fluid 06/23/22 06/23/22 insulin detemir U-100 100 unit/mL 21 unit SQ HS Diabetes 06/23/22 06/23/22 subcutaneous solution (Levemir U-100 Insulin) insulin human U-100 NPH-regulr 23 unit SQ TIDWMEAL Diabetes 06/23/22 06/23/22 70-30 mix 100 unit/mL subcutaneous susp (Humulin 70/30 U-100 Insulin) lisinopril 20 mg tablet 20 mg PO BID Hypertension 06/23/22 06/23/22 metformin 1,000 mg tablet 1,000 mg PO BID Diabetes 06/23/22 06/23/22 metoprolol succinate 50 mg 50 mg PO BID heart 06/23/22 06/23/22 tablet,extended release 24 hr omeprazole 20 mg capsule,delayed 20 mg PO DAILY stomach 06/23/22 06/23/22 release pen needle, diabetic 31 gauge x 06/23/22 06/23/22 5/16 (Lite Touch Insulin Pen [place]) pravastatin 80 mg tablet 80 mg PO DAILY Cholesterol 06/23/22 06/23/22 sitagliptin 100 mg tablet (Januvia) 100 mg PO DAILY Diabetes 06/23/22 06/23/22 tamsulosin 0.4 mg capsul
--- NOTE | 2022-06-23 13:15 | XR_ITS ---
FINAL REPORT CLINICAL HISTORY: SOB/CP COMPARISON: December 08, 2017 FINDINGS: Left-sided pacemaker. The heart size is normal. The mediastinum is within normal limits. New interstitial markings with vascular congestion suggesting mild CHF. There is no pneumothorax. The bony thorax is intact. IMPRESSION: Findings suggestive of mild CHF. Reviewed, Interpreted and Dictated by Yosi Lester MD Transcribed by Raúl Sterling Authenticated and [facility]
--- NOTE | 2022-06-23 13:19 | PC.NURSE ---
ROSALBA JIM at
[2022-06-23 13:30] LABS: Chloride 91 mmol/L (98-107)
[2022-06-23 13:31] LABS: Potassium 5.1 mmoL/L (3.5-5.1); Sodium 130 mmol/L (136-145)
[2022-06-23 13:33] LABS: Alanine Aminotransferase 26 U/L (12-78); Alkaline Phosphatase 109 U/L (38-126); Anion Gap 16.1 mEq/L (5-15); Aspartate Amino Transferase 36 U/L (17-59); Bilirubin,Total 0.6 mg/dl (0.2-1.3); Blood Urea Nitrogen 17 mg/dl (9-20); Carbon Dioxide 28 mmol/L (22.0-30.0); Creatinine Clearance Estimated 89 mL/min (50-200); Estimated Glomerular Filt Rate 60 ml/min (>60); GFR (African American) 73 ML/MIN (>60)
[2022-06-23 13:34] LABS: Albumin Level 4.3 g/dl (3.5-5.0); Albumin/Globulin Ratio 1.8 (1.1-1.8); Calcium 8.8 mg/dl (8.4-10.2); Globulin 2.4 g/dL (1.3-3.2); Glucose 109 mg/dl (74-100); Magnesium 1.6 mg/dl (1.6-2.3); Total Protein,Serum 6.7 g/dl (6.3-8.2)
[2022-06-23 13:43] LABS: POC Glucose,Bedside 123 (70-110)
[2022-06-23 13:43] LABS: NT Pro Brain Natriuretic Pep. 2330 pg/mL (0-125)
[2022-06-23 13:49] LABS: Troponin I 0.38 ng/ml (0.00-0.034)
--- NOTE | 2022-06-23 13:50 | PC.NURSE ---
lab called critical troponin result. notified
--- NOTE | 2022-06-23 13:57 | PC.NURSE ---
contacted cardiology for
--- NOTE | 2022-06-23 14:00 | PC.NURSE ---
ROSALBA JIM speaking with dr. nuno.
--- NOTE | 2022-06-23 14:01 | PC.NURSE ---
speaking to primary care office to get in touch with dr davin estrella MD
--- NOTE | 2022-06-23 14:02 | PC.NURSE ---
speaking to dr jin
--- NOTE | 2022-06-23 14:02 | PC.NURSE ---
ROSALBA JIM speaking to Dr. Torres for Dr. Araya
--- NOTE | 2022-06-23 14:04 | PC.NURSE ---
talked to Ross in pharmacy for heparin drip dosing
[2022-06-23 14:10] LABS: Influenza A, PCR Not Detected (NotDetected); Influenza B, PCR Not Detected (NotDetected)
--- NOTE | 2022-06-23 14:10 | PC.NURSE ---
pt medication list confirmed with pt at BS at this time, medications updated in computer system
[2022-06-23 14:12] LABS: Coronavirus 19, PCR Not Detected (NotDetected)
--- NOTE | 2022-06-23 14:15 | PC.NURSE ---
notified care management of admission, spoke with
[2022-06-23 14:27] LABS: Activated Partial Thrombo Time 24.8 seconds (22.8-30.6); INR 1.18 (0.9-1.1); Prothrombin Time 12.6 seconds (10.1-12.5)
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
--- NOTE | 2022-06-23 14:46 | PC.NURSE ---
dilshad john for cardiology at
--- NOTE | 2022-06-23 14:48 | PC.NURSE ---
jamal chowdhury in room with pt
--- NOTE | 2022-06-23 15:07 | PC.NURSE ---
waiting production reproduction manager back from receiving nurse on second floor to give report.
[2022-06-23 15:08] LABS: Basophils % 0.4 % (0.1-2.0); Eosinophils # 0.2 K/mm3 (0.0-0.4); Eosinophils % 1.8 % (0.1-12.0); Hematocrit 35.1 % (42.0-52.0); Lymphocytes # 0.8 K/mm3 (0.7-4.5); Lymphocytes % 6.7 % (10-50); Mean Corpuscular HGB Conc 31.3 g/dL (31.8-35.4); Mean Corpuscular Volume 86.2 fl (80-94); Mean Platelet Volume 7.9 fl (7.4-10.4); Monocytes # 0.8 K/mm3 (0.1-1.0); Monocytes % 6.9 % (1.7-9.3); Neutrophils # 9.9 K/mm3 (1.8-7.8); Neutrophils % 84.2 % (37.0-80.0); Platelet Count 216 K/mm3 (142-424); Red Blood Count 4.07 M/mm3 (4.60-6.20); Red Cell Distribution Width 13.4 % (11.5-17.5); White Blood Count 11.8 K/mm3 (4.8-10.8)
--- NOTE | 2022-06-23 15:08 | CA_ITS ---
APPROVED REPORT EXAM: Comprehensive 2D, Doppler, and color-flow Echocardiogram State Director: Tracey Briones, DONNIE, RVS Ht: 6 ft 0 in Wt: 240lbs BSA: 2.30 BP: 169/79 mmHg Indications: CHF, SOA, Abn EKG, AICD, Hx-CM, HTN, HLD 2D Dimensions Left Atrium 4.39 cm LA Volume 45.10 mL LVOT 1.90 cm (M/F) 1.5-2.5 LA Volume Index 19.60 mL/m2 (M/F) 16-34 M-Mode Dimensions RVDd 2.29 cm (0.9-2.6) LA Diam 4.60 cm (1.9-4.0) LVDd 5.95 cm (3.5-5.7) Ao Diam 3.27 cm (2.0-3.7) LVDs 4.30 cm (3.5-5.7) IVSd 1.13 cm (0.6-1.1) PWd 1.13 cm (0.6-1.1) EF (Teich) 52.90% EPSs 0.73 cm FS 27.70% EDV (Teich) 176.60 mL ESV (Teich) 83.10 mL LV Diastology E Decel Time 190.00 (160-240 msec) E/A Ratio 2.37 MED E' 7.40 (< 7 cm/sec) MED A' 5.50 cm/s E'/MED E' Ratio 14.64 (>14) LAT E' 9.30 (<10 cm/sec) LAT A' 6.60 cm/s E/LAT E' Ratio 11.65 (>14) Aortic Valve LVOT Max 98.00 (70-110 cm/s) LVOT VTI 22.44 cm AoV Peak John. 113.00 (50-130 cm/s) AO Peak GR. 5.10 mmHg AO Mean GR. 2.80 (<5 mmHg) AO VTI 24.47 (18-25 cm) JUNO (VTI) 2.60 (2.5-4.5 cm2) Mitral Valve MV A Velocity 46.00 (40-130 cm/s) E/A Ratio 2.37 MV Decel. Time 190.00 (160-240 ms) Pulmonary Valve PV Peak Velocity 74.00 (50-150 cm/s) Tricuspid Valve TR P. Velocity 263.00 cm/s RAP Estimate 10.00 mmHg RVSP 37.60 mmHg Left Ventricle Left atrium is mildly enlarged, left ventricle is normal size mild concentric left ventricular hypertrophy, estimated ejection fraction 50% with no regional wall motion abnormality, grade 2 diastolic dysfunction seen without tissue Doppler evidence of raise left atrial pressure. Right Ventricle Right atrium and right ventricle are mildly enlarged with normal contractility, AICD lead seen in right ventricle. Aortic Valve Aortic valve is minimally thickened and calcified without aortic stenosis or aortic insufficiency. Mitral Valve Mitral valve grossly normal, there is trace mitral regurgitation. Tricuspid Valve Tricuspid valve grossly normal, there is trace tricuspid regurgitation, tricuspid regurgitation jet velocity is inadequate for calculation of the right ventricular systolic pressure. Pulmonic Valve Pulmonic valve is poorly visualized. Great Vessels Aortic root is normal size. Vena cava is normal size with normal inspiratory collapse. Pericardium No significant pericardial effusion noted. Conclusion 1. Mild biatrial enlargement, normal left ventricular size, mild concentric left ventricular hypertrophy, estimated ejection fraction 50% with no regional wall motion abnormality, grade 2 diastolic dysfunction seen without tissue Doppler evidence of raise left atrial pressure. 2. Mildly enlarged right ventricle with normal contractility, AICD lead seen in the right ventricle. 3. Trace mitral and tricuspid regurgitation. 4. No significant pericardial effusion. 5. Inferior vena cava is poorly visualized. Electronically signed by : Marvin Alexander MD 06/24/2022 14:47:13
--- NOTE | 2022-06-23 15:16 | PC.NURSE ---
spoke with echo who states they be coming to the bedside for scan
--- NOTE | 2022-06-23 15:23 | PC.NURSE ---
dietary brought tray for pt
--- NOTE | 2022-06-23 15:23 | PC.NURSE ---
echo at the bedside
--- NOTE | 2022-06-23 15:26 | PC.NURSE ---
report called to manfred reese on second floor at this time. notified her cv lab staff is at BS at this time for echo, estimated it would take approx 20 minutes. States she will send staff down to transport pt.
--- NOTE | 2022-06-23 15:28 | PC.NURSE ---
approx 1520 pt reported to be that for approx 30 minutes his eyes have felt heavy, was asking if he had been given any medication to make him tired. Explained to pt he had been given a medication to help pull fluid off of him and heparin a blood thinner. Notified ER MD of pt reporting his eyes feeling heavy for approx 30 minutes and he was concerned. ER MD asked if pt had any rashes or swelling or SOA, stated to him none were noted. ER MD states to continue to monitor pt, if rash, swelling or SOA is noted to notify him.
--- NOTE | 2022-06-23 16:02 | PC.NURSE ---
2nd floor here to get pt
--- NOTE | 2022-06-23 16:11 | PC.NURSE ---
patient arrived to thew floor from ED by wheelchair
--- NOTE | 2022-06-23 16:52 | PC.NURSE ---
Addendum entered by Yolanda Escobar RN 06/23/22 18:56: spoke with pts regarding meds taken. gave me a list of 8 meds including a vitamin metformin, gabapentin, bupropion, metoprolol, lisinopril, januvia, and ASA. paged neus to determine if 1730 meds should be administered and a critical lab trop-0.36, waiting production stage manager back Original Note: pt arrived to floor at 1613, i asked pt is he had taken any of his meds today due to bp being elevated, he stated while down in the ED right before coming upstairs he took his meds from home. pt states he did not notify anyone that he was taking these meds. pt showed me an empty pill bottle. pt stated he doesn't know what the pills were because his fixes them for him, all he knows is there were 7 pills and they were his morning meds. pts iv came out after arriving to floor, new iv, 20g in RT AC with heparin going at 20ml/hr 1000units. pt states he has his wallet and money in his pants pocket and hes going to keep it on him for the time being.
[2022-06-23 17:46] LABS: POC Glucose,Bedside 220 (70-110)
[2022-06-23 18:20] LABS: Troponin I 0.36 ng/ml (0.00-0.034)
--- NOTE | 2022-06-23 19:26 | PC.NURSE ---
spoke with neus, hold metformin. order medium intensity sliding scale insulin, Q6 checks. start tonight. reported critical troponin.
[2022-06-23 20:37] LABS: PTT Heparin (inpatient only) 26.8 Seconds (23.6-34.0)
[2022-06-23 20:52] LABS: Troponin I 0.44 ng/ml (0.00-0.034)
--- NOTE | 2022-06-23 21:05 | PC.NURSE ---
MD SHELF DRIER OPERATOR NEUS NOTIFIED OF CRITICAL TROPONIN OF 0.44
[2022-06-24] VITALS (24 sets, daily range): BP systolic 118–171; BP diastolic 53–109; PULSE 60–65; RESP 13–20; TEMP 36.6–36.9; O2SAT 91–97; BMI 34.4
--- NOTE | 2022-06-24 | IR_ITS ---
APPROVED REPORT Patient Location: Inpatient PROCEDURES Left heart catheterization Left ventriculogram Selective coronary angiogram Drug-eluting stent deployment to the mid LAD Drug-eluting stent deployment to the first obtuse marginal artery Drug-eluting stent deployment to the second obtuse marginal artery INDICATION Acute non-ST elevation myocardial infarction, Coronary artery disease Informed consent was obtained prior to the procedure. COMPLICATIONS None Estimated Blood Loss: Less than 10 mls TECHNIQUE One percent lidocaine used to anesthetize the right anterior aspect of the wrist. The right radial artery was accessed via the Seldinger technique. A 6 Italian sheath was placed in the right radial artery. 2.5 mg of verapamil, 800 mcg of nitroglycerin, 1mg Lidocaine and 5000 U Heparin were given through the arterial sheath. The papa catheter was also used to perform left heart catheterization, left ventriculogram and selective coronary angiogram. At the end the diagnostic angiogram therapeutic heparin was administered giving a therapeutic ACT and the guide catheter was placed in the left main artery. A Choice PT extra-support wire was initially placed into the first obtuse marginal artery and attempted stenting was undertaken however it kicked out the guide catheter. The wire then easily went down the LAD therefore the wire was left in the LAD and a 2.75 x 38 mm resolute Schurz stent was deployed at 20 ananth reducing the severe hazy stenosis to 0%. A guide liner was required to deliver the stent due to the proximal stenosis. There was difficulty delivering the stent without the guide liner however with the guide liner advanced up to the lesion this then allowed delivery of the stent. Once CLAUDETTE-3 flow was achieved the wire was pulled back and placed in the second obtuse marginal artery. A 2 mm x 22 mm resolute Theodore stent was deployed at 20 ananth in the second obtuse marginal artery reducing the critical stenosis. The wire was pulled back and placed into the first obtuse marginal artery where a 2 mm x 15 mm resolute Schurz stent was then placed proximally and deployed at 12 ananth CLAUDETTE-3 flow was present down both obtuse marginal arteries before and after the procedure. Then the procedure the apparatus was removed sheath was removed good hemostasis was achieved using TR banding patient was transferred to the postop putting in stable addition ANGIOGRAPHIC RESULTS The left main artery Normal The left anterior descending artery Has proximal 30 to 40% stenosis with a hazy mid vessel 60% stenosis followed by an additional 50% stenosis. The first diagonal artery has proximal and mid vessel 10 to 20% stenoses The circumflex artery Is a nondominant vessel gives rise to 2 medium sized obtuse marginal arteries. First obtuse marginal artery has a proximal 70 to 80% stenosis while the second obtuse marginal artery has a mid vessel to distal 90% stenosis The right coronary artery Is a dominant vessel and has proximal to mid vessel 30 to 40% stenoses with a distal 40 to 50% stenosis with an additional hazy 60 to 70% stenosis. The posterior descending artery has proximal 50% stenosis followed by mid vessel 50% stenosis The BECKER ventriculogram reveals Dilated with ejection fraction 35% The left ventricular end-diastolic pressure Critically elevated at 40 to 45 mmHg IMPRESSION Coronary disease as described above Successful stenting of the mid LAD hazy stenosis which is possibly the culprit for the non-ST elevation myocardial infarction being reduced to 0% with 1 drug-eluting stent Successful stenting of severely diseased first obtuse marginal artery severe disease reduced to 0% with 1 drug-eluting stent Successful stenting
[2022-06-24 00:32] LABS: POC Glucose,Bedside 208 (70-110)
[2022-06-24 03:30] LABS: PTT Heparin (inpatient only) 30.3 Seconds (23.6-34.0)
[2022-06-24 05:44] LABS: POC Glucose,Bedside 160 (70-110)
--- NOTE | 2022-06-24 06:13 | PC.NURSE ---
NO ACUTE CHANGES SINCE PREVIOUS ASSESSMENT. LUNG SOUNDS ARE CLEAR AND REMAINS ON ROOM AIR. PT HAS AMBULATED IN THE ROOM SEVERAL TIMES THIS SHIFT. VSS. NO C/O N/V/D, SON, OR CHEST PAIN. PT HAS EXPRESSED HIS DESIRE TO GO HOME THIS SHIFT BUT REMAINS PLEASANT. HEPARIN DRIPS REMAINS IN PLACE AT 37ML/HR AND PT IS TOLERATING WELL. DRIP RATE HAS BEEN TITRATED PER NIGHT WATCH NEEDED.
--- NOTE | 2022-06-24 07:07 | EXP.PHA.VTE ---
[facility] Pharmacy VTE Monitoring Patient Demographics Admission date: 06/23/22 Report Date: 06/24/22 Time: 07:07 Patient Allergies No Known Allergies Allergy (Verified 03/22/22 13:22) Height: 1.83 m Weight: 115.411 kg Current Active Problems (Updated 06/23/22 @ 15:05 by DANTE Guidry) Systolic CHF, acute on chronic (Acute) Coronary arteriosclerosis (Chronic) Hypertensive heart disease (Chronic) Cardiomyopathy (Chronic) Hyperlipidemia (Chronic) Dyspnea on exertion (Chronic) Diabetes mellitus (Chronic) CHF (congestive heart failure) (Acute) Non-ST elevation (NSTEMI) myocardial infarction (Acute) Automatic implantable cardioverter-defibrillator in situ (Chronic) VTE Risk Labs: VTE Related Lab Results Hgb 11.0 g/dL (14.1-18.0) L 06/23/22 13:10 Hct 35.1 % (42.0-52.0) L 06/23/22 13:10 Plt Count 216 K/mm3 (142-424) 06/23/22 13:10 PT 12.6 seconds (10.1-12.5) H 06/23/22 13:10 INR 1.18 (0.9-1.1) H 06/23/22 13:10 APTT 30.3 Seconds (23.6-34.0) 06/24/22 03:05 BUN 17 mg/dl (9-20) 06/23/22 13:10 Creatinine 1.20 mg/dl (0.66-1.25) 06/23/22 13:10 Estimated Creat Clear 89 mL/min (50-200) 06/23/22 13:10 Prophylaxis VTE Prophylaxis Ordered?: Yes Types of VTE Prophylaxis: Pharmacological Pharmacologic Type: Heparin
[2022-06-24 07:17] LABS: Anion Gap 16.4 mEq/L (5-15); Blood Urea Nitrogen 18 mg/dl (9-20); Carbon Dioxide 30 mmol/L (22.0-30.0); Chloride 87 mmol/L (98-107); Chol/HDL Ratio 4.5 (1-3.5); Cholesterol 171 mg/dl (140-200); Creatinine Clearance Estimated 81 mL/min (50-200); Estimated Glomerular Filt Rate 50 ml/min (>60); GFR (African American) 61 ML/MIN (>60); Glucose 168 mg/dl (74-100); HDL Cholesterol 38 mg/dl (40-60); Potassium 4.4 mmoL/L (3.5-5.1); Sodium 129 mmol/L (136-145); Triglycerides 165 mg/dl (30-150); VLDL Cholesterol 33 mg/dL (0-40)
[2022-06-24 07:24] LABS: Basophils # 0.1 K/mm3 (0-0.2); Basophils % 0.8 % (0.1-2.0); Eosinophils # 0.3 K/mm3 (0.0-0.4); Eosinophils % 2.9 % (0.1-12.0); Hematocrit 35.2 % (42.0-52.0); Hemoglobin 11.6 g/dL (14.1-18.0); Lymphocytes # 1.2 K/mm3 (0.7-4.5); Lymphocytes % 11.2 % (10-50); Mean Corpuscular Hemoglobin 27.9 pg (27.0-31.2); Mean Corpuscular Volume 84.3 fl (80-94); Mean Platelet Volume 8.5 fl (7.4-10.4); Monocytes # 0.7 K/mm3 (0.1-1.0); Monocytes % 6.7 % (1.7-9.3); Neutrophils # 8.7 K/mm3 (1.8-7.8); Neutrophils % 78.4 % (37.0-80.0); Platelet Count 251 K/mm3 (142-424); Red Blood Count 4.18 M/mm3 (4.60-6.20); Red Cell Distribution Width 13.8 % (11.5-17.5)
--- NOTE | 2022-06-24 07:25 | HMH.PHAINT1 ---
Pharmacy Intervention Comments: MEDICATION RECONCILIATION COMPLETED ON PATIENT USING EXTERNAL FILL HISTORY FROM PHARMACY AND LIST FROM CARDIOLOGY OFFICE. -RADHA RIGGS, ALEXEYD
[2022-06-24 07:28] LABS: Direct LDL Cholesterol 93.18 mg/dL (100-129)
--- NOTE | 2022-06-24 07:50 | HMH.PHAHEP ---
[facility] Pharmacy Heparin Dosing Demographic Data Admission date:: 06/23/22 Date: 06/24/22 Time: 07:51 Allergies Allergy/AdvReac Type Severity Reaction Status Date / Time No Known Allergies Allergy Verified 03/22/22 13:22 Height: 1.83 m Weight: 108.8 kg Indication Medication therapy:: Heparin Current Active Problems (Updated 06/23/22 @ 15:05 by DANTE Guidry) Systolic CHF, acute on chronic (Acute) Coronary arteriosclerosis (Chronic) Hypertensive heart disease (Chronic) Cardiomyopathy (Chronic) Hyperlipidemia (Chronic) Dyspnea on exertion (Chronic) Diabetes mellitus (Chronic) Pulmonary emphysema (Chronic) CHF (congestive heart failure) (Acute) Non-ST elevation (NSTEMI) myocardial infarction (Acute) Automatic implantable cardioverter-defibrillator in situ (Chronic) CVA?: No Bleeding problem?: No Kidney disease?: No TN?: No Desired PTT range:: 50-75 seconds Labs Anticoagulation Lab Results:: 06/23/22 06/24/22 13:10 06:41 Hgb 11.0 L 11.6 L Hct 35.1 L 35.2 L Plt Count 216 251 Monitoring Dose Monitor 1: Date: 06/23/22 Time: 14:15 PTT Result:: 24.8 (BASELINE) Infusion Rate:: 1,000 UINTS/HR Comment:: 5,000 UNIT BOLUS Dose Monitor 2: Date: 06/23/22 Time: 20:15 PTT Result:: 26.8 Infusion Rate:: INCREASE RATE TO 1,400 UNITS/HR Comment:: 4,000 UNIT BOLUS Dose Monitor 3: Date: 06/24/22 Time: 03:05 PTT Result:: 30.3 Infusion Rate:: INCREASE RATE TO 1,850 UNITS/HR Comment:: 4,000 UNIT BOLUS Dose Monitor 4: Date: 06/24/22 Time: 10:03 PTT Result:: 36.7 Infusion Rate:: INCREASE RATE TO 2,300 UNITS/HR Comment:: 4,000 UNIT BOLUS HEPARIN DRIP STOPPED IN HEAD LINEMAN Core Measures Is INR > or = 2 at discharge?: No Most Recent Labs:: Laboratory Results - last 24 hr 06/23/22 13:10: WBC 11.8 H, RBC 4.07 L, Hgb 11.0 L, Hct 35.1 L, MCV 86.2, MCH 27.0, MCHC 31.3 L, RDW 13.4, Plt Count 216, MPV 7.9, Neut % (Auto) 84.2 H, Lymph % (Auto) 6.7 L, [place] % (Auto) 6.9, Eos % (Auto) 1.8, Baso % (Auto) 0.4, Neut # (Auto) 9.9 H, Lymph # (Auto) 0.8, [place] # (Auto) 0.8, Eos # (Auto) 0.2, Baso # (Auto) 0.0 06/23/22 13:10: Sodium 130 L, Potassium 5.1, Chloride 91 L, Carbon Dioxide 28, Anion Gap 16.1 H, BUN 17, Creatinine 1.20, Estimated Creat Clear 89, Estimated GFR 60, Est GFR ( Amer) 73, Glucose 109 H, Calcium 8.8, Magnesium 1.6, Total Bilirubin 0.6, AST 36, ALT 26, Alkaline Phosphatase 109, Troponin I 0.38 H, NT-Pro-B Natriuret Pep 2330 H, Total Protein 6.7, Albumin 4.3, Globulin 2.4, Albumin/Globulin Ratio 1.8 06/23/22 13:10: PT 12.6 H, INR 1.18 H, APTT 24.8 06/23/22 13:11: POC Glucose 123 H 06/23/22 14:10: SARS-CoV-2 (PCR) Not detected, Influenza A Untype (PCR) Not detected, Influenza Type B (PCR) Not detected 06/23/22 17:20: Troponin I 0.36 H 06/23/22 17:38: POC Glucose 220 H 06/23/22 20:17: Troponin I 0.44 H 06/23/22 20:17: APTT 26.8 06/23/22 20:32: POC Glucose 208 H 06/24/22 03:05: APTT 30.3 06/24/22 05:30: POC Glucose 160 H 06/24/22 06:41: WBC 11.0 H, RBC 4.18 L, Hgb 11.6 L, Hct 35.2 L, MCV 84.3, MCH 27.9, MCHC 33.0, RDW 13.8, Plt Count 251, MPV 8.5, Neut % (Auto) 78.4, Lymph % (Auto) 11.2, [place] % (Auto) 6.7, Eos % (Auto) 2.9, Baso % (Auto) 0.8, Neut # (Auto) 8.7 H, Lymph # (Auto) 1.2, [place] # (Auto) 0.7, Eos # (Auto) 0.3, Baso # (Auto) 0.1 06/24/22 06:41: Sodium 129 L, Potassium 4.4, Chloride 87 L, Carbon Dioxide 30, Anion Gap 16.4 H, BUN 18, Creatinine 1.40 H, Estimated Creat Clear 81, Estimated GFR 50 L, Est GFR ( Amer) 61, Glucose 168 H D, Calcium 9.0, Triglycerides 165 H, Cholesterol 171, LDL Cholesterol Direct 93.18 L, VLDL Cholesterol 33, HDL Cholesterol 38 L, Cholesterol/HDL Ratio 4.5 H If INR was < than 2.0 why was therapy stopped?: ACS Were Heparin and Warfarin started on the same day?: No If not, why?: NSTEMI
[2022-06-24 08:31] LABS: Troponin I 0.61 ng/ml (0.00-0.034)
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
--- NOTE | 2022-06-24 09:12 | EXP.CARD.PN ---
Subjective Subjective Date: 06/24/22 Time: 09:12 Principal diagnosis: Non-STEMI, CHF Interval history: 67-year-old white male in bed in no acute distress. Shortness of breath is improved after diuresis yesterday. Troponin has trended up to a max of 0.61 this morning. Patient is on the schedule for left heart catheterization today. He has no chest pain. [place] RADIOTELEPHONE OPERATOR-D interrogated this a.m. showing evidence of fluid overload over the last week. Battery status is good at 3-1/2 years, a pacing 38% and biventricular pacing 99%. Atrial fibrillation burden is 0%. Exam Data for Last 24 hours Vital signs and Labs for Last 24 Hours: Temp Pulse Resp BP Pulse Ox 98.2 F 60 16 137/71 94 L 06/24/22 04:00 06/24/22 04:00 06/24/22 04:00 06/24/22 04:00 06/24/22 04:00 Laboratory Results - last 24 hr 06/23/22 13:10: WBC 11.8 H, RBC 4.07 L, Hgb 11.0 L, Hct 35.1 L, MCV 86.2, MCH 27.0, MCHC 31.3 L, RDW 13.4, Plt Count 216, MPV 7.9, Neut % (Auto) 84.2 H, Lymph % (Auto) 6.7 L, [place] % (Auto) 6.9, Eos % (Auto) 1.8, Baso % (Auto) 0.4, Neut # (Auto) 9.9 H, Lymph # (Auto) 0.8, [place] # (Auto) 0.8, Eos # (Auto) 0.2, Baso # (Auto) 0.0 06/23/22 13:10: Sodium 130 L, Potassium 5.1, Chloride 91 L, Carbon Dioxide 28, Anion Gap 16.1 H, BUN 17, Creatinine 1.20, Estimated Creat Clear 89, Estimated GFR 60, Est GFR ( Amer) 73, Glucose 109 H, Calcium 8.8, Magnesium 1.6, Total Bilirubin 0.6, AST 36, ALT 26, Alkaline Phosphatase 109, Troponin I 0.38 H, NT-Pro-B Natriuret Pep 2330 H, Total Protein 6.7, Albumin 4.3, Globulin 2.4, Albumin/Globulin Ratio 1.8 06/23/22 13:10: PT 12.6 H, INR 1.18 H, APTT 24.8 06/23/22 13:11: POC Glucose 123 H 06/23/22 14:10: SARS-CoV-2 (PCR) Not detected, Influenza A Untype (PCR) Not detected, Influenza Type B (PCR) Not detected 06/23/22 17:20: Troponin I 0.36 H 06/23/22 17:38: POC Glucose 220 H 06/23/22 20:17: Troponin I 0.44 H 06/23/22 20:17: APTT 26.8 06/23/22 20:32: POC Glucose 208 H 06/24/22 03:05: APTT 30.3 06/24/22 05:30: POC Glucose 160 H 06/24/22 06:41: WBC 11.0 H, RBC 4.18 L, Hgb 11.6 L, Hct 35.2 L, MCV 84.3, MCH 27.9, MCHC 33.0, RDW 13.8, Plt Count 251, MPV 8.5, Neut % (Auto) 78.4, Lymph % (Auto) 11.2, [place] % (Auto) 6.7, Eos % (Auto) 2.9, Baso % (Auto) 0.8, Neut # (Auto) 8.7 H, Lymph # (Auto) 1.2, [place] # (Auto) 0.7, Eos # (Auto) 0.3, Baso # (Auto) 0.1 06/24/22 06:41: Sodium 129 L, Potassium 4.4, Chloride 87 L, Carbon Dioxide 30, Anion Gap 16.4 H, BUN 18, Creatinine 1.40 H, Estimated Creat Clear 81, Estimated GFR 50 L, Est GFR ( Amer) 61, Glucose 168 H D, Calcium 9.0, Triglycerides 165 H, Cholesterol 171, LDL Cholesterol Direct 93.18 L, VLDL Cholesterol 33, HDL Cholesterol 38 L, Cholesterol/HDL Ratio 4.5 H 06/24/22 06:41: Troponin I 0.61 H I & O for Last 24 hours: Intake & Output 06/21/22 06/22/22 06/23/22 06/24/22 11:59 11:59 11:59 11:59 Intake Total 510 / 510 Output Total 1550 / 1550 Balance -1040 / -1040 Weight 239 lb 13.807 oz Constitutional Constitutional: no acute distress *Routine Respiratory Exam Respiratory: Present crackles Comments: Mild basilar crackles but improved *Routine Cardiovascular Exam Cardiovascular: Present RRR *Routine Extremities Exam Extremities: Present edema Progress Note: A&P Assessment and plan (1) Systolic CHF, acute on chronic: Status: Acute (2) Non-ST elevation (NSTEMI) myocardial infarction: Status: Acute (3) Automatic implantable cardioverter-defibrillator in situ: Status: Chronic (4) Dyspnea on exertion: Status: Chronic (5) Hyperlipidemia: Status: Chronic (6) Cardiomyopathy: Status: Chronic (7) Hypertensive heart disease: Status: Chronic (8) Coronary arteriosclerosis: Status: Chronic (9) Diabetes mellitus: Status: Chronic Assessment and Plan Assessment and Plan for All Diagnoses:: 1. Non-ST elevation AL With plans for left heart catheterization today. Continue aspirin and Plavix along
[2022-06-24 10:51] LABS: PTT Heparin (inpatient only) 36.7 Seconds (23.6-34.0)
[2022-06-24 10:57] LABS: POC Glucose,Bedside 176 (70-110)
[2022-06-24 12:41] LABS: CATHL Activated Clotting Time > 400 SEC (74-125)
[2022-06-24 16:11] LABS: POC Glucose,Bedside 226 (70-110)
--- NOTE | 2022-06-24 17:03 | PC.NURSE ---
PT IS RESTING IN BED WITH FAMILY AT BEDSIDE. ALERT AND ORIENTED X4. EATING AND DRINKING WELL. CATH VSS. DRESSING TO RIGHT RADIAL CATH SITE C/D/I. PACED ON TELEMETRY. LUNG SOUNDS DIMINISHED WITH FINE RIGHT SIDED CRACKLES (RLL). ABDOMEN DISTENDED/NON TENDER WITH ACTIVE BOWEL SOUNDS. 1+ PITTING EDEMA NOTED TO BLE. WILL CONTINUE TO MONITOR.
[2022-06-24 20:53] LABS: POC Glucose,Bedside 268 (70-110)
[2022-06-25] VITALS (9 sets, daily range): BP systolic 148–174; BP diastolic 71–79; PULSE 60–78; RESP 16–20; TEMP 36.5–37.3; O2SAT 92–97; BMI 33.1
--- NOTE | 2022-06-25 06:02 | PC.NURSE ---
Shift summary: Pt has not voiced any c.o to staff t/o shift. DSG to r radial remains the same-small amount of dried blood. Pt has been up walking hallways during shift. Call light within reach.
[2022-06-25 07:36] LABS: POC Glucose,Bedside 229 (70-110)
[2022-06-25 07:40] LABS: Basophils # 0.1 K/mm3 (0-0.2); Basophils % 0.7 % (0.1-2.0); Eosinophils # 0.3 K/mm3 (0.0-0.4); Eosinophils % 2.3 % (0.1-12.0); Hematocrit 32.5 % (42.0-52.0); Hemoglobin 11.1 g/dL (14.1-18.0); Lymphocytes % 7.3 % (10-50); Mean Corpuscular HGB Conc 34.2 g/dL (31.8-35.4); Mean Corpuscular Hemoglobin 28.8 pg (27.0-31.2); Monocytes % 7.2 % (1.7-9.3); Neutrophils # 11.4 K/mm3 (1.8-7.8); Neutrophils % 82.5 % (37.0-80.0); Platelet Count 260 K/mm3 (142-424); Red Blood Count 3.87 M/mm3 (4.60-6.20); Red Cell Distribution Width 13.9 % (11.5-17.5); White Blood Count 13.8 K/mm3 (4.8-10.8)
[2022-06-25 07:44] LABS: Chloride 87 mmol/L (98-107)
[2022-06-25 07:45] LABS: Potassium 4.5 mmoL/L (3.5-5.1); Sodium 129 mmol/L (136-145)
[2022-06-25 07:47] LABS: Blood Urea Nitrogen 26 mg/dl (9-20); Creatinine Clearance Estimated 55 mL/min (50-200); Estimated Glomerular Filt Rate 33 ml/min (>60); GFR (African American) 40 ML/MIN (>60)
[2022-06-25 07:48] LABS: Anion Gap 18.5 mEq/L (5-15); Calcium 8.6 mg/dl (8.4-10.2); Carbon Dioxide 28 mmol/L (22.0-30.0); Glucose 213 mg/dl (74-100)
[2022-06-25 08:14] LABS: Magnesium 1.6 mg/dl (1.6-2.3)
--- NOTE | 2022-06-25 09:15 | P.PN_ITS ---
Subjective *Date: 06/25/22 *Time: 20:15 Interval history: pt with no specific c/o still weak- renal function still compromised Medical Exam Vital signs and Labs for Last 24 Hours: Temp Pulse Resp BP Pulse Ox 99.2 F 68 18 152/73 H 94 L 06/25/22 07:46 06/25/22 08:00 06/25/22 07:46 06/25/22 07:46 06/25/22 07:46 Laboratory Results - last 24 hr 06/24/22 10:03: APTT 36.7 H 06/24/22 10:48: POC Glucose 176 H 06/24/22 12:18: Activated Clotting Time > 400 H* 06/24/22 16:04: POC Glucose 226 H 06/24/22 20:32: POC Glucose 268 H 06/25/22 07:24: POC Glucose 229 H 06/25/22 07:29: WBC 13.8 H D, RBC 3.87 L, Hgb 11.1 L, Hct 32.5 L, MCV 84.0, MCH 28.8, MCHC 34.2, RDW 13.9, Plt Count 260, MPV 9.0, Neut % (Auto) 82.5 H, Lymph % (Auto) 7.3 L, Finney % (Auto) 7.2, Eos % (Auto) 2.3, Baso % (Auto) 0.7, Neut # (Auto) 11.4 H, Lymph # (Auto) 1.0, Finney # (Auto) 1.0, Eos # (Auto) 0.3, Baso # (Auto) 0.1 06/25/22 07:29: Sodium 129 L, Potassium 4.5, Chloride 87 L, Carbon Dioxide 28, Anion Gap 18.5 H, BUN 26 H D, Creatinine 2.00 H D, Estimated Creat Clear 55, Estimated GFR 33 L, Est GFR ( Amer) 40 L D, Glucose 213 H, Calcium 8.6 06/25/22 07:29: Magnesium 1.6 I & O for Labs for Last 24 Hours: Intake & Output 06/22/22 06/23/22 06/24/22 06/25/22 11:59 11:59 11:59 11:59 Intake Total 510 / 510 840 / 840 Output Total 2390 / 2390 1800 / 1800 Balance -1880 / -1880 -960 / -960 Weight 239 lb 13.807 oz 245 lb Head: Present atraumatic Eyes: Present as per HPI ENT: Present mucous membranes moist Neck: Present trachea midline Respiratory: Absent respiratory distress Cardiac: Present Reg Rate and Rhythm GI: Present soft Extremities: Absent calf tenderness Skin: Absent rash Neuro: Absent Cranial Nerve 2-12 Intact or Essential Tremor Assessment and Plan *Assessment and plan (1) Renal insufficiency: Status: Acute Category: Medical Code(s): N28.9 - Disorder of kidney and ureter, unspecified Plan will review meds and check bmp in am
[2022-06-25 11:52] LABS: POC Glucose,Bedside 306 (70-110)
[2022-06-25 16:11] LABS: POC Glucose,Bedside 134 (70-110)
--- NOTE | 2022-06-25 18:03 | PC.NURSE ---
VS stable and patient remained on room air. Tegaderm changed this am, dressing clean dry and intact with no complications noted at radial site. No reports of pain noted.
[2022-06-25 20:39] LABS: POC Glucose,Bedside 331 (70-110)
[2022-06-26] VITALS (8 sets, daily range): BP systolic 117–166; BP diastolic 78–106; PULSE 60–70; RESP 16–20; TEMP 36.6–36.9; O2SAT 93–97; BMI 33.7
[2022-06-26 04:53] LABS: POC Glucose,Bedside 162 (70-110)
--- NOTE | 2022-06-26 05:39 | PC.NURSE ---
pt A&OX4. ambulates in room independently. no complaints of pain this shift. dressing to radil site cdi. CB in reach.
[2022-06-26 07:54] LABS: Chloride 90 mmol/L (98-107); Sodium 130 mmol/L (136-145)
[2022-06-26 07:55] LABS: Potassium 4.7 mmoL/L (3.5-5.1)
[2022-06-26 07:58] LABS: Anion Gap 15.7 mEq/L (5-15); Blood Urea Nitrogen 33 mg/dl (9-20); Calcium 8.6 mg/dl (8.4-10.2); Carbon Dioxide 29 mmol/L (22.0-30.0); Creatinine Clearance Estimated 46 mL/min (50-200); Estimated Glomerular Filt Rate 27 ml/min (>60); GFR (African American) 33 ML/MIN (>60); Glucose 161 mg/dl (74-100)
--- NOTE | 2022-06-26 09:02 | EXP.ACUTE.PN ---
Subjective *Date: 06/27/22 *Time: 09:38 Interval history: pt doing ok but renal function still elevated Medical Exam Vital signs and Labs for Last 24 Hours: Temp Pulse Resp BP Pulse Ox 98.1 F 68 18 156/80 H 93 L 06/26/22 07:59 06/26/22 07:59 06/26/22 07:59 06/26/22 07:59 06/26/22 07:59 Laboratory Results - last 24 hr 06/25/22 11:30: POC Glucose 306 H* 06/25/22 16:02: POC Glucose 134 H 06/25/22 19:49: POC Glucose 331 H* 06/26/22 04:41: POC Glucose 162 H 06/26/22 06:51: Sodium 130 L, Potassium 4.7, Chloride 90 L, Carbon Dioxide 29, Anion Gap 15.7 H, BUN 33 H D, Creatinine 2.40 H, Estimated Creat Clear 46, Estimated GFR 27 L, Est GFR ( Amer) 33 L, Glucose 161 H D, Calcium 8.6 I & O for Labs for Last 24 Hours: Intake & Output 06/23/22 06/24/22 06/25/22 06/26/22 11:59 11:59 11:59 11:59 Intake Total 510 / 510 840 / 840 1680 / 1680 Output Total 2390 / 2390 1800 / 1800 1979 / 1979 Balance -1880 / -1880 -960 / -960 -300 / -300 Weight 239 lb 13.807 oz 245 lb 249 lb 8 oz Head: Present atraumatic Eyes: Present as per HPI ENT: Present mucous membranes moist Neck: Present trachea midline Respiratory: Present CTA bilaterally Cardiac: Present Regular Rhythm GI: Present soft Extremities: Absent tenderness Skin: Present intact Neuro: Present Cranial Nerve 2-12 Intact
[2022-06-26 11:00] LABS: POC Glucose,Bedside 314 (70-110)
--- NOTE | 2022-06-26 14:34 | PC.NURSE ---
Fluids stopped after patient felt a little sob of breathe after walking to bathroom.
--- NOTE | 2022-06-26 17:11 | PC.NURSE ---
VS stable and patient remained on room air. No complaints of chest pain noted. No other reports of shortness of breath since fluids have been stopped.
[2022-06-26 18:15] LABS: Chloride 92 mmol/L (98-107); Sodium 133 mmol/L (136-145)
[2022-06-26 18:18] LABS: Blood Urea Nitrogen 34 mg/dl (9-20); Carbon Dioxide 28 mmol/L (22.0-30.0); Creatinine Clearance Estimated 46 mL/min (50-200); Estimated Glomerular Filt Rate 27 ml/min (>60); GFR (African American) 33 ML/MIN (>60)
[2022-06-26 18:19] LABS: Glucose 195 mg/dl (74-100)
[2022-06-26 18:54] LABS: POC Glucose,Bedside 343 (70-110)
[2022-06-26 21:16] LABS: POC Glucose,Bedside 258 (70-110)
[2022-06-27] VITALS: BP 146/78; PULSE 60; PULSE 69; RESP 16; TEMP 36.6; O2SAT 96
--- NOTE | 2022-06-27 03:22 | PC.NURSE ---
No acute changes since previous assessment. Pt has rested in intervals. Cath site c/d/i. No c/o of chest pain or SOA. Checking blood glucose ACHS. Call light in reach. Bed in lowest position. No needs or complaints voiced at this time.
[2022-06-27 04:00] VITALS: BP 167/74; PULSE 60; RESP 16; TEMP 36.6; O2SAT 95
[2022-06-27 05:00] VITALS: BMI 33.7
[2022-06-27 06:14] LABS: POC Glucose,Bedside 177 (70-110)
[2022-06-27 07:39] LABS: Chloride 93 mmol/L (98-107); Potassium 4.9 mmoL/L (3.5-5.1); Sodium 133 mmol/L (136-145)
[2022-06-27 07:42] LABS: Anion Gap 16.9 mEq/L (5-15); Blood Urea Nitrogen 33 mg/dl (9-20); Carbon Dioxide 28 mmol/L (22.0-30.0); Creatinine Clearance Estimated 59 mL/min (50-200); Estimated Glomerular Filt Rate 35 ml/min (>60); GFR (African American) 43 ML/MIN (>60)
[2022-06-27 07:43] LABS: Glucose 184 mg/dl (74-100)
[2022-06-27 08:00] VITALS: BP 184/82; PULSE 71; RESP 22; TEMP 36.6; O2SAT 95
[2022-06-27 08:11] VITALS: PULSE 70
--- NOTE | 2022-06-27 10:32 | EXP.DC.SUM ---
General Admission date:: 06/23/22 Discharge date: 06/27/22 HPI HPI HPI: 67-year-old male patient presented to the [facility] emergency department with reports of worsening shortness of breath for the past month and in the last 2 to 3 days significant worsening. He also reports left-sided chest pain that hurts so bad it brought tears to my eyes lasting several minutes and then subsided. He does have a history of status post coronary artery stents 1 to 2 years ago, systolic heart failure, type 2 diabetes, hypertension, cardiomyopathy, and prior permanent pacemaker placement. Troponins are elevated and patient received IV Lasix Hospital Course Hospital Course Hospital Course: pt was admitted and seen by card-.? CAD A.? REGINALD to circumflex and RCA, 05/2017 B.? Ischemic cardiomyopathy C.? AICD implantation 11/2017 D.? Cardiac catheterization, 05/2017, EF 40% with REGINALD to RCA.? LAD with mild CAD and circumflex with 70% stenosis prior to OM. E.? LHC, 04/30/18, mild nonflow limiting CAD.? Nonischemic cardiomyopathy with EF 45%.? Normal renal arteries. F.? Lexiscan Myoview, 08/2021, no ischemia, EF 47%. 2.? Centrilobular emphysema by CT of the chest, 12/2017 A.? Remote history of tobacco use 3.? Hypertension A.? Echocardiogram, 08/2021 showed mild LAE, normal LV size, mild concentric LVH with EF 50%.? Abnormal septal motion noted.? Trace MR, TR. 4.? Hyperlipidemia 5.? Systolic congestive heart failure 6.? Diabetes mellitus History of present illness: 67-year-old male, history of CAD status post stents approximately 1 to 2 years ago, systolic heart failure, type 2 diabetes, hypertension, cardiomyopathy, prior pacemaker placement.? He is on 20 mg of Lasix p.o. twice daily.? He presents today with complaint of worsening of breath, states has noticed it ongoing over a month but over the last 2 to 3 days has had significant worsening to the point where if he tries to bend over he would be significantly short of breath or if he lies flat.? He is also noted difficulty sleeping as well as worsening bilateral lower extremity edema.? He says about 2 days ago he had sensation like someone was sitting on his chest which abated spontaneously.? Currently he reports just mild tightness but primarily difficulty breathing.? He does not wear oxygen at home and has not tried any treatments prior to this visit.? The above per ER MD, Rickey Herrera Patient confirms events as noted above but also relates several weeks history of exertional shortness of breath and chest discomfort that resolves with rest.? The substernal chest discomfort 2 days ago brought tears to my eyes but he did not take any nitroglycerin because he states he did not have any. EKG today shows ventricular pacing. BMP is elevated At 2330 with chest x-ray evidence of congestive heart failure. Troponin is elevated at 0.38. Patient will be admitted, diuresed with plans for cardiac catheterization tomorrow.? We will check echocardiogram and interrogate his AICD. pt had card cath-ANGIOGRAPHIC RESULTS The left main artery Normal The left anterior descending artery Has proximal 30 to 40% stenosis with a hazy mid vessel 60% stenosis followed by an additional 50% stenosis.? The first diagonal artery has proximal and mid vessel 10 to 20% stenoses The circumflex artery Is a nondominant vessel gives rise to 2 medium sized obtuse marginal arteries.? First obtuse marginal artery has a proximal 70 to 80% stenosis while the second obtuse marginal artery has a mid vessel to distal 90% stenosis The right coronary artery Is a dominant vessel and has proximal to mid vessel 30 to 40% stenoses with a distal 40 to 50% stenosis with an additional hazy 60 to 70% stenosis.? The posterior descending artery has proximal 50% stenosis followed by mid vessel 50% stenosis The BECKER ventriculogram reveals Dilated with ejection fraction 35% The left ventricular end-diastolic pressure Critically elevated at 40 to 45 mmHg
--- NOTE | 2022-06-27 11:03 | HMH.PHACL ---
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 LASIX HAS BEEN STOPPED. PATIENT VERBALIZED UNDERSTANDING AND HAD NO QUESTIONS AT THIS TIME. -RADHA RIGGS, ALEXEYD
--- NOTE | 2022-06-28 13:32 | CARE MANAGER ---
Attempted to contact patient related to hospital discharge. Phone number is not working.
== END 2022-06-27 10:55 | disposition home or self-care (01) | DRG 246 ==
LOC: ER 14:10 → 2ND 14:26
PROVIDERS: Internal Medicine; Physician Assistant; Admitting Provider Family Medicine; Emergency Provider Emergency Medicine; PCP Emergency Medicine; Visit Provider Emergency Medicine
PROC: 027236Z Dilation of Coronary Artery, Three Arteries with Three Drug-eluting Intraluminal Devices, Percutaneous Approach (ICD-10-PCS; principal; 2022-06-24 12:00)
DX: I21.4 Non-ST elevation (NSTEMI) myocardial infarction (principal); I50.23 Acute on chronic systolic (congestive) heart failure; I50.32 Chronic diastolic (congestive) heart failure; Z95.810 Presence of automatic (implantable) cardiac defibrillator; E78.2 Mixed hyperlipidemia; I25.5 Ischemic cardiomyopathy; I11.0 Hypertensive heart disease with heart failure; I25.10 Atherosclerotic heart disease of native coronary artery without angina pectoris; Z79.4 Long term (current) use of insulin; E11.40 Type 2 diabetes mellitus with diabetic neuropathy, unspecified
CPT/HCPCS: 36415; 71045; 80048; 80053; 80061; 82962; 83735; 83880; 84484; 85025; 85347; 85610; 85730; 92928; 92929; 93005; 93306; 93458; 99152; 99153; 99291; C1725; C1769; C1876; C9600; C9601; C9803; J1644; Q9967; U0003; U0005

== ENCOUNTER 2022-07-14 16:24 | Emergency (ER) | payer MEDICARE, BC, SELFPAY ==
[2022-07-14] VITALS (9 sets, daily range): BP systolic 165–186; BP diastolic 80–95; PULSE 70–76; RESP 15–21; TEMP 36.9–37.1; O2SAT 91–98; BMI 28.3
--- NOTE | 2022-07-14 16:36 | CT_ITS ---
PROCEDURE INFORMATION: Exam: CT Head Without Contrast Exam date and time: 07/14/2022 4:40 PM Age: 67 years old Clinical indication: Stroke-like symptoms; Altered mental status/memory loss; Additional info: AMS TECHNIQUE: Imaging protocol: Computed tomography of the head without contrast. Radiation optimization: All CT scans at this facility use at least one of these dose optimization techniques: automated exposure control; mA and/or kV adjustment per patient size (includes targeted exams where dose is matched to clinical indication); or iterative reconstruction. Other technique: STROKE PROTOCOL was implemented. COMPARISON: HEADWO CT head/brain wo con 08/22/2018 1:36 PM FINDINGS: Brain: Hypodensity with loss of donnelly-white differentiation involving the right posterior temporal and occipital lobes, consistent with acute or subacute infarct and new compared to the prior head CT. An additional area of hypodensity is visualized involving the anterior aspect of the right insula, subinsular region, and frontal lobe which is also new and concerning for subacute infarction. There is an area of hyperdensity involving the right posterior frontal cortical subcortical region, concerning for hemorrhage. This measures 0.9 x 0.7 x 0.6 cm and is visualized on series 3, image 44. There are scattered additional foci of white matter hypodensity, likely representing small vessel ischemic disease. The acuity of the white matter disease is indeterminate. There is no midline shift. Cerebral ventricles: There is mild prominence of the ventricles and sulci, compatible with atrophy. The ventricles have increased in size compared to the previous exam. There is irregular contour of the lateral ventricles. Pituitary gland and sella: Partially empty sella. Paranasal sinuses: Visualized sinuses are unremarkable. No fluid levels. Mastoid air cells: No mastoid effusion. Bones/joints: The calvarium demonstrates no evidence for a depressed fracture. Soft tissues: Unremarkable. Vasculature: Intracranial atherosclerosis visualized. IMPRESSION: 1. Hypodensity with loss of donnelly-white differentiation involving the right posterior temporal and occipital lobes, consistent with acute or subacute infarct and new compared to the prior head CT. Correlation with MRI recommended, as clinically indicated. 2. An additional area of hypodensity is visualized involving the anterior aspect of the right insula, subinsular region, and frontal lobe, which is also new and concerning for subacute infarction. 3. There is a small area of hyperdensity involving the right posterior frontal cortical subcortical region, concerning for hemorrhage. A follow-up head CT in 12-24 hours is recommended. 4. There are scattered additional foci of white matter hypodensity, likely representing small vessel ischemic disease. 5. Mild atrophy. 6. Partially empty sella. ASSESSMENT: ASPECTS ([place] Stroke Program Early CT Score) is 9.
--- NOTE | 2022-07-14 16:43 | PC.NURSE ---
at bedside at this time obtaining pt history from family.
[2022-07-14 16:45] LABS: Microscopic, Urine URINE MICROSCOPIC (MICROSCOPIC)
--- NOTE | 2022-07-14 16:48 | HMH.EDGENADL ---
Discharge Plan Disposition Patient Disposition: Xfer Short-Term Hosp Condition: Serious Prescriptions Prescriptions: No Action aspirin 81 mg tablet,delayed release (DR/EC) 81 mg PO DAILY furosemide [Lasix] 40 mg tablet 40 mg PO DAILY Qty: 30 2RF spironolactone 50 mg tablet 50 mg PO DAILY Qty: 90 2RF Januvia 50 mg tablet 50 mg PO DAILY Qty: 90 3RF metformin 500 mg tablet 500 mg PO BID Qty: 180 3RF Levemir U-100 Insulin 100 unit/mL solution See Rx Instructions .ROUTE .COMPLEX Qty: 10 0RF Dose Instruction: INJECT 21 UNITS SUBCUTANEOUSLY AT BEDTIME FOR DIABETES Rx Instructions: INJECT 21 UNITS SUBCUTANEOUSLY AT BEDTIME FOR DIABETES gabapentin 800 mg tablet 800 mg PO BID 30 Days Qty: 60 3RF metoprolol succinate 50 mg tablet extended release 24 hr 50 mg PO BID Humulin 70/30 U-100 Insulin 100 unit/mL (70-30) suspension 23 unit SQ TIDWMEAL clopidogrel 75 mg tablet 75 mg PO DAILY pravastatin 80 mg tablet 80 mg PO HS tamsulosin 0.4 mg capsule 0.4 mg PO DAILY omeprazole 20 mg capsule,delayed release(DR/EC) 20 mg PO DAILY bupropion HCl 150 mg tablet extended release 24 hr 150 mg PO DAILY sildenafil 100 mg tablet 100 mg PO NEEDED PRN (Reason: sexual activity) Rx Instructions: administer 30 minutes to 4 hours before activity lisinopril 20 mg tablet 20 mg PO DAILY Qty: 30 0RF Clinical Impressions Clinical Impression: Embolic stroke, Infarction of kidney, Infarction of spleen, HCAP (healthcare-associated pneumonia), Aneurysm, cerebral Stand Alone Forms Stand Alone Forms: Transfer Record - ED Instructions Patient Instructions: DI for Altered Mental Status Discharge ED Provider: Sherman Boykin General Adult HPI General Chief complaint: Altered Mental Status Stated complaint: AMS Time Seen by Provider: 07/14/22 16:40 History of Present Illness HPI narrative: History obtained from the patient's and granddaughter. The patient is unable to give any history on his own. He is brought in by ambulance for altered mental status. Family reports that he was admitted here around 25 June for a heart attack. He had a stent placed. He was discharged on June 27. His granddaughter says for the first day he seemed to be fine, but the next day began having problems with confusion that comes and goes or waxes and wanes. Daughter says when he followed up with Dr. Moore in the office for his heart attack they were told that he likely had a stroke based on his behavior and symptoms. Patient's states that he is also followed up with Dr. Araya but as far she knows he has not had any testing such as head CT. Today he has been very confused all day. She says that his confusion is twice as bad today as he has been previously. His reports that he has had problems with his abdomen for the past 2 days. He has been constipated. He is complained of abdominal pain. There has been no vomiting. No fever. He has a cough, but no other URI symptoms. He has not complained of a headache. Related Data Home Medications Medication Instructions Recorded Confirmed aspirin 81 mg tablet,delayed 81 mg PO DAILY HEART HEALTH 06/22/21 07/08/22 release bupropion HCl 150 mg 24 hr tablet, 150 mg PO DAILY mood 06/23/22 07/08/22 extended release clopidogrel 75 mg tablet 75 mg PO DAILY PLATELET INHIBITOR 06/23/22 07/08/22 insulin human U-100 NPH-regulr 23 unit SQ TIDWMEAL Diabetes 06/23/22 07/08/22 70-30 mix 100 unit/mL subcutaneous susp (Humulin 70/30 U-100 Insulin) metoprolol succinate 50 mg 50 mg PO BID Hypertension 06/23/22 07/08/22 tablet,extended release 24 hr omeprazole 20 mg capsule,delayed 20 mg PO DAILY stomach 06/23/22 07/04/22 release pravastatin 80 mg tablet 80 mg PO HS Cholesterol 06/23/22 07/04/22 tamsulosin 0.4 mg capsule 0.4 mg PO DAILY bladder 06/23/22 07/08/22 sildenafil 100 mg table
[2022-07-14 16:51] LABS: Chloride 92 mmol/L (98-107); Potassium 4.5 mmoL/L (3.5-5.1); Sodium 134 mmol/L (136-145)
--- NOTE | 2022-07-14 16:52 | CT_ITS ---
PROCEDURE INFORMATION: Exam: CT Abdomen And Pelvis With Contrast Exam date and time: 07/14/2022 4:59 PM Age: 67 years old Clinical indication: Abdominal pain; Additional info: Abdominal pain, constipation TECHNIQUE: Imaging protocol: Computed tomography of the abdomen and pelvis with contrast. Radiation optimization: All CT scans at this facility use at least one of these dose optimization techniques: automated exposure control; mA and/or kV adjustment per patient size (includes targeted exams where dose is matched to clinical indication); or iterative reconstruction. Contrast material: ISOVUE; Contrast volume: 75 ml; Contrast route: IV; COMPARISON: RETROPCM US kidney retroperitoneal comp 07/23/2018 3:13 PM FINDINGS: Tubes, catheters and devices: Triple lead pacemaker is noted. Lungs: Mild basilar bronchovascular crowding. Heart: Heart size is normal. There is a small pericardial effusion. Liver: Tiny low-attenuation lesion in the lateral segment left hepatic lobe is too small to fully characterize. Gallbladder and bile ducts: No regional inflammation. No calcified stones. No ductal dilation. Pancreas: Normal. No ductal dilation. Spleen: Several wedge-shaped areas diminished perfusion are noted in the spleen, concerning for embolic infarctions. Adrenal glands: Normal configuration. Kidneys and ureters: There are 2 wedge-shaped areas of altered perfusion in the right kidney. Left kidney appears normal. No evidence of obstruction or calculus involving either kidney. Stomach and bowel: No pneumatosis appreciated in the bowel. Appendix: Normal appendix is confirmed. Intraperitoneal space: No free air. No significant fluid collection. Vasculature: No portal venous gas. Lymph nodes: No enlarged lymph nodes. Urinary bladder: Catheterized urinary bladder. Reproductive: Physiologic appearance for age. Bones/joints: No fracture or destructive lesion. Soft tissues: Unremarkable. IMPRESSION: Exam demonstrates features multifocal splenic infarctions. There are also several segmental infarctions involving the right kidney. No other end-organ infarctions are appreciated. In particular, no bowel pneumatosis is evident, and there is no evidence of portal venous gas. Etiology of presumed emboli not identified in this exam.
[2022-07-14 16:54] LABS: Alanine Aminotransferase 29 U/L (12-78); Albumin Level 4.3 g/dl (3.5-5.0); Albumin/Globulin Ratio 1.5 (1.1-1.8); Alkaline Phosphatase 167 U/L (38-126); Anion Gap 17.5 mEq/L (5-15); Aspartate Amino Transferase 37 U/L (17-59); Bilirubin,Total 0.6 mg/dl (0.2-1.3); Blood Urea Nitrogen 24 mg/dl (9-20); Carbon Dioxide 29 mmol/L (22.0-30.0); Creatinine Clearance Estimated 64 mL/min (50-200); Estimated Glomerular Filt Rate 46 ml/min (>60); GFR (African American) 56 ML/MIN (>60); Globulin 2.8 g/dL (1.3-3.2); Glucose 375 mg/dl (74-100); Total Protein,Serum 7.1 g/dl (6.3-8.2)
--- NOTE | 2022-07-14 16:54 | XR_ITS ---
PROCEDURE INFORMATION: Exam: XR Chest Exam date and time: 07/14/2022 5:10 PM Age: 67 years old Clinical indication: Other: AMS TECHNIQUE: Imaging protocol: Radiologic exam of the chest. Views: 1 view. COMPARISON: 1. CT ABDOMEN PELVIS W CON 07/14/2022 4:59 PM 2. CR XR CHEST PORTABLE 06/23/2022 1:36 PM FINDINGS: Tubes, catheters and devices: A left-sided pacemaker is visualized. Lungs: Low lung volumes are visualized. An infiltrate is identified within the left mid upper lung zone, suggestive atelectatic change or pneumonia. Nonspecific increased interstitial markings are seen within the left lung, without progression. Basilar atelectasis is better visualized on the CT abdomen/pelvis from the same day. Pleural spaces: No pleural effusion. No pneumothorax. Heart/Mediastinum: The cardiac silhouette appears enlarged. Bones/joints: Hypertrophic degenerative changes are noted involving the spine. Other findings: Clinical correlation and follow-up radiographs are recommended. IMPRESSION: 1. Low lung volumes are visualized. An infiltrate is identified within the left mid upper lung zone, suggestive atelectatic change or pneumonia. 2. The cardiac silhouette appears enlarged. 3. Nonspecific increased interstitial markings are seen within the left lung, without progression. 4. Additional findings described above.
--- NOTE | 2022-07-14 17:01 | PC.NURSE ---
PT IN CT
[2022-07-14 17:03] LABS: Basophils # 0.1 K/mm3 (0-0.2); Basophils % 0.5 % (0.1-2.0); Eosinophils # 0.2 K/mm3 (0.0-0.4); Eosinophils % 1.3 % (0.1-12.0); Hematocrit 38.7 % (42.0-52.0); Hemoglobin 12.6 g/dL (14.1-18.0); Lymphocytes # 0.8 K/mm3 (0.7-4.5); Lymphocytes % 5.1 % (10-50); Mean Corpuscular HGB Conc 32.7 g/dL (31.8-35.4); Mean Corpuscular Hemoglobin 27.4 pg (27.0-31.2); Mean Corpuscular Volume 83.8 fl (80-94); Mean Platelet Volume 8.8 fl (7.4-10.4); Monocytes # 0.8 K/mm3 (0.1-1.0); Monocytes % 5.2 % (1.7-9.3); Neutrophils % 87.9 % (37.0-80.0); Platelet Count 215 K/mm3 (142-424); Red Blood Count 4.62 M/mm3 (4.60-6.20); Red Cell Distribution Width 14.2 % (11.5-17.5); White Blood Count 15.9 K/mm3 (4.8-10.8)
[2022-07-14 17:11] LABS: Lipase 112 U/L (23-300)
[2022-07-14 17:13] LABS: MANUAL DIFFERENTIAL MANUAL DIFFERENTIAL (MANUAL DIFF)
--- NOTE | 2022-07-14 17:13 | PC.NURSE ---
pt returned from ct
[2022-07-14 17:16] LABS: Acetone, Serum (Rapid) None Detected (None Detect)
--- NOTE | 2022-07-14 17:26 | PC.NURSE ---
ROSALBA JIM speaking with marla
--- NOTE | 2022-07-14 17:27 | PC.NURSE ---
notified RT of vbg order
--- NOTE | 2022-07-14 17:32 | PC.NURSE ---
ROSALBA JIM speaking with Bob again at this time.
[2022-07-14 17:34] LABS: Troponin I 0.65 ng/ml (0.00-0.034)
--- NOTE | 2022-07-14 17:34 | PC.NURSE ---
LAB CALLED WITH TROP OF 0.65 MD AWARE
[2022-07-14 17:36] LABS: VBG Base Excess -0.6 mmol/L (-2.4-2.3); VBG HCO3 25.1 mmol/L (23-30); VBG Oxygen Saturation 61.1 % (50-70); VBG PCO2 46.8 mmol/L (35-51); VBG PH 7.35 mmol/L (7.31-7.41); VBG PO2 35.8 mmol/L (28-40); VBG Total CO2 26.5 mmol/L (23-27)
--- NOTE | 2022-07-14 17:41 | PC.NURSE ---
contacted radiology, requested the send images to [facility]
--- NOTE | 2022-07-14 17:43 | ECG_ITS ---
APPROVED REPORT Exam: Resting ECG HR:69 bpm ECG Measurements Heart Rate 69 AXES VT 157 P 75 QRSd 147 QRS 58 QT 439 T 38 QTc 458 Conclusion ELECTRONIC VENTRICULAR PACEMAKER MARKED ST ELEVATION, CONSIDER INFERIOR INJURY [MARKED ST ELEVATION W/O NORMALLY INFLECTED T-WAVE IN II/aVF] MARKED ST ELEVATION, CONSIDER ANTEROLATERAL INJURY [MARKED ST ELEVATION W/O NORMALLY INFLECTED T-WAVE IN V3-V6] ACUTE [facility] UNCONFIRMED REPORT Electronically signed by : Hussain Ramirez MD 07/15/2022 12:34:34
[2022-07-14 17:46] LABS: Activated Partial Thrombo Time 24.1 seconds (22.8-30.6); INR 1.15 (0.9-1.1); Prothrombin Time 12.3 seconds (10.1-12.5)
[2022-07-14 17:53] LABS: Lactic Acid 1.3 mmol/L (0.7-2.1)
--- NOTE | 2022-07-14 18:14 | CT_ITS ---
PROCEDURE INFORMATION: Exam: CT Angiography Head With Contrast Exam date and time: 07/14/2022 6:28 PM Age: 67 years old Clinical indication: Stroke-like symptoms; Altered mental status/memory loss TECHNIQUE: Imaging protocol: Computed tomographic angiography of the head with contrast. 3D rendering (Not supervised by radiologist): MIP and/or 3D reconstructed images were created by the technologist. Radiation optimization: All CT scans at this facility use at least one of these dose optimization techniques: automated exposure control; mA and/or kV adjustment per patient size (includes targeted exams where dose is matched to clinical indication); or iterative reconstruction. Contrast material: ISOVUE; Contrast volume: 100 ml; Contrast route: INTRAVENOUS (IV); COMPARISON: CT HEAD/BRAIN WO CON 07/14/2022 4:40 PM FINDINGS: Limitations: Suboptimal imaging. Limited evaluation. ANTERIOR CIRCULATION: Right internal carotid artery: Atherosclerosis of the right internal carotid artery, with mild stenoses. No aneurysm. Right middle cerebral artery: No occlusion of M1 and M2 segments of the right middle cerebral artery. Evaluation of more distal segments is significant limited. Right anterior cerebral artery: No definite occlusion. 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 Left internal carotid artery: Atherosclerosis of the left internal carotid artery, with mild stenoses. No aneurysm. Left middle cerebral artery: No definite occlusion. Left anterior cerebral artery: No definite occlusion. POSTERIOR CIRCULATION: Right vertebral artery: Severely decreased flow and occlusion of the V4 segment of the right vertebral artery. Left vertebral artery: A dominant left vertebral artery is identified. No significant stenosis or occlusion of the left vertebral artery. Basilar artery: No definite occlusion. Right posterior cerebral artery: No definite occlusion. Left posterior cerebral artery: No definite occlusion. Brain: Refer to the head CT report from the same day. Cerebral ventricles: Mild ventriculomegaly. Other findings: This study is significant limited by suboptimal arterial enhancement. IMPRESSION: 1. Severely decreased flow and occlusion of the V4 segment of the right vertebral artery. 2. 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 3. A dominant left vertebral artery is identified. 4. Atherosclerosis of the internal carotid arteries, with mild stenoses bilaterally. 5. Additional findings described above.
--- NOTE | 2022-07-14 18:14 | CT_ITS ---
PROCEDURE INFORMATION: Exam: CT Angiography Neck With Contrast Exam date and time: 07/14/2022 6:28 PM Age: 67 years old Clinical indication: Stroke-like symptoms; Altered mental status/memory loss TECHNIQUE: Imaging protocol: Computed tomography angiography of the neck with contrast. 3D rendering (Not supervised by radiologist): MIP and/or 3D reconstructed images were created by the technologist. Radiation optimization: All CT scans at this facility use at least one of these dose optimization techniques: automated exposure control; mA and/or kV adjustment per patient size (includes targeted exams where dose is matched to clinical indication); or iterative reconstruction. Contrast material: ISOVUE 370; Contrast volume: 100 ml; Contrast route: INTRAVENOUS (IV); COMPARISON: CT HEAD/BRAIN WO CON 07/14/2022 4:40 PM FINDINGS: Limitations: Limited evaluation due to poor arterial enhancement. Tubes, catheters and devices: A left-sided pacemaker is partially visualized. Right common carotid artery: Probable severe stenosis of the distal right common carotid artery, although the evaluation is suboptimal due to poor arterial enhancement. Right internal carotid artery: Atherosclerosis and stenosis of the proximal right internal carotid artery. Evaluation of this vessel is otherwise nondiagnostic due to poor arterial enhancement. Measurement of the stenosis is suboptimal due to poor enhancement. Right external carotid artery: Nondiagnostic evaluation due to poor enhancement. Left common carotid artery: Evaluation of the left common carotid artery is nondiagnostic due to poor arterial enhancement. Left internal carotid artery: Atherosclerosis and stenosis of proximal left internal carotid artery. Evaluation of this vessel is otherwise nondiagnostic due to poor arterial enhancement. Measurement of the stenosis is suboptimal due to poor enhancement. Left external carotid artery: Nondiagnostic evaluation due to poor enhancement. Right vertebral artery: Severely decreased flow or occlusion of the right vertebral artery. Evaluation of this vessel is suboptimal due to limitations of this study. Left vertebral artery: A dominant left vertebral artery is visualized with atherosclerotic change. Evaluation of this vessel is otherwise suboptimal due to poor enhancement. Aorta: Atherosclerosis of the aortic arch. Bones/joints: Mild reversal of the lordotic curvature of the cervical spine. Degenerative changes identified at multiple cervical levels. Varying degrees of spinal canal stenoses and neural foraminal narrowing at multiple cervical levels. A central protrusion is visualized at C4-C5, with mild spinal canal stenosis. Soft tissues: No significant soft tissue swelling. Lungs: Increased interstitial markings within the lungs bilaterally. A small infiltrate is seen within the left upper lobe of the lung. Atelectatic change in pneumonia are within the differential. Within the right upper lobe of the lung, there is a 4 mm nodular density. This can be contributed by atelectatic change. IMPRESSION: 1. Severely decreased flow or occlusion of the right vertebral artery. Evaluation of this vessel is suboptimal due to limitations of this study. Due to the limitations of this study, correlation with MRA with/without contrast is recommended, as clinically indicated. 2. Atherosclerotic changes of the proximal bilateral internal carotid arteries with stenoses. Measurement of the stenosis is suboptimal due to poor arterial enhancement. 3. Probable severe stenosis of the distal right common carotid artery, with atherosclerosis. Limited
--- NOTE | 2022-07-14 18:15 | PC.NURSE ---
DR EDGAR SPEAKING WITH [facility] , THEY WANT CTA'S OF HEAD AND NECK
[2022-07-14 18:17] LABS: Appearance,Urine CLEAR (Clear); Bilirubin,Urine Negative (Negative); Blood, Urine 3+ (Negative); Color,Urine YELLOW (Yellow); Glucose,Urine (UA) 3+ (Negative); Ketones,Urine Negative (Negative); Leukocyte Esterase,Urine Negative (Negative); Nitrate,Urine Negative (Negative); PH,Urine 6.5 (5.0-8.5); Protein,Urine 2+ (Negative); Urobilinogen,Urine 0.2 EU/dl (0.2)
[2022-07-14 18:27] LABS: Coronavirus 19, PCR Not Detected (NotDetected); Influenza A, PCR Not Detected (NotDetected); Influenza B, PCR Not Detected (NotDetected)
[2022-07-14 18:28] LABS: Eosinophils % 1 % (0-3); Lymphocytes % 9 % (10-50); Monocytes % 3 % (2-9); Neutrophils % 87 % (42-76); Platelet Estimate Normal; RBC Morphology Normal; Total Cells Counted 100
[2022-07-14 18:39] LABS: Squamous Epithelial Cell,Urine Occasional #/hpf (0-5)
--- NOTE | 2022-07-14 18:40 | PC.NURSE ---
PT BACK IN CT
--- NOTE | 2022-07-14 19:01 | PC.NURSE ---
spoke with [employer] to check status of weather
--- NOTE | 2022-07-14 19:15 | PC.NURSE ---
calling [facility] after imaging
--- NOTE | 2022-07-14 19:24 | PC.NURSE ---
speaking to marla about new scans
--- NOTE | 2022-07-14 19:42 | PC.NURSE ---
awaiting call from [facility] stroke team
--- NOTE | 2022-07-14 20:08 | PC.NURSE ---
[facility] accepts pt. awaiting number to call report
--- NOTE | 2022-07-14 20:09 | PC.NURSE ---
[facility] contacted to come off stand by and come to the ed.
--- NOTE | 2022-07-14 20:25 | PC.NURSE ---
[facility] to the ed
--- NOTE | 2022-07-14 20:30 | PC.NURSE ---
called report to neuro icu charge
--- NOTE | 2022-07-14 20:52 | PC.NURSE ---
[employer] departing from ed
== END 2022-07-14 21:07 | disposition short-term general hospital (02) ==
PROVIDERS: Emergency Provider Emergency Medicine; PCP Emergency Medicine
DX: I63.9 Cerebral infarction, unspecified (principal); N28.0 Ischemia and infarction of kidney; D73.5 Infarction of spleen; J18.9 Pneumonia, unspecified organism; I67.1 Cerebral aneurysm, nonruptured; Z79.4 Long term (current) use of insulin; Z79.82 Long term (current) use of aspirin; Z79.899 Other long term (current) drug therapy; Z95.810 Presence of automatic (implantable) cardiac defibrillator; I10 Essential (primary) hypertension; E29.1 Testicular hypofunction; I42.9 Cardiomyopathy, unspecified
CPT/HCPCS: 51702; 70450; 70496; 70498; 71045; 74177; 80053; 81001; 82009; 82803; 83605; 83690; 84484; 85007; 85025; 85610; 85730; 87040; 93005; 96365; 99285; 99291; C9803; Q9967; U0003; U0005